=== PATIENT | female | born 1955 | race African-American/Black ===

== ENCOUNTER 2017-04-04 09:31 | Emergency (ER) | payer OTHER ==
[~2017-04-04] VITALS: Ht 162.6 cm; Wt 56.8 kg
[~2017-04-04 09:31] MED LIST: AMLO-511 PO; ASPI81TA33 PO; HYDR-2924 PO; NAPR-58 PO; VITAD1000 PO
[2017-04-04 11:28] LABS: INFLUENZA TYPE A NEGATIVE FOR TYPE A (NEGATIVE); INFLUENZA TYPE B NEGATIVE FOR TYPE B (NEGATIVE)
[2017-04-04] MEDS ORDERED: ASPIRIN 81 MG CHEWABLE TABLET PO ONE (12:45)
[2017-04-04 12:58] LABS: BASOPHILS # (AUTO) 0.03 K/uL (0.00-0.20); BASOPHILS % (AUTO) 0.5 % (0.0-2.0); EOSINOPHILS # (AUTO) 0.03 K/uL (0.00-0.70); EOSINOPHILS % (AUTO) 0.58 % (1.0-6.0); HEMATOCRIT 40.1 % (36-46); HEMOGLOBIN 13.3 g/dL (12.0-16.0); LYMPHOCYTES # (AUTO) 2.5 K/uL (1.0-4.8); LYMPHOCYTES % (AUTO) 48.6 % (22.0-44.0); MEAN CORPUSCULAR HEMOGLOBIN 32.9 pg (26.0-34.0); MEAN CORPUSCULAR HGB CONC 33.2 G/dL (31.0-37.0); MEAN CORPUSCULAR VOLUME 99 fL (80-100); MONOCYTES # (AUTO) 0.4 K/uL (0.1-1.0); MONOCYTES % (AUTO) 7.4 % (2.0-9.0); NEUTROPHILS # (AUTO) 2.2 K/uL (1.8-7.7); NEUTROPHILS % (AUTO) 42.9 % (40.0-70.0); PLATELET COUNT (AUTO) 136 K/uL (150-450); RED BLOOD CELL COUNT(AUTO) 4.04 MIL/uL (4.00-5.20)
[2017-04-04 13:03] LABS: PROTHROMBIN TIME 10.5 SEC (9.4-11.6)
[2017-04-04 13:07] LABS: ANION GAP 5 mmol/L (8-16); CALCIUM, TOTAL 8.7 mg/dL (8.8-10.5); CARBON DIOXIDE 31 mmol/L (22-29); CHLORIDE 102 mmol/L (98-107); CREATININE 0.86 mg/dL (0.60-1.30); GLOMERULAR FILTR. RATE CALC > 60 mL/min (>60); GLUCOSE,RANDOM 117 mg/dL (70-110); POTASSIUM 3.5 mmol/L (3.5-5.1); SODIUM SERUM 138 mmol/L (136-145); UREA NITROGEN, BLOOD 8 mg/dL (7-18)
[2017-04-04 13:26] LABS: B-TYPE NATRIURETIC PEPTIDE 103 pg/mL (0-100)
[2017-04-04 13:32] LABS: ALANINE AMINOTRANSFERASE 34 U/L (12-78); ALBUMIN 3.3 g/dL (3.4-5.0); ALKALINE PHOSPHATASE 75 U/L (46-116); ASPARTATE AMINOTRANSFERASE 55 U/L (15-37); BILIRUBIN,TOTAL 0.4 mg/dL (0.1-1.0); CREATINE KINASE MB 0.7 ng/mL (0-5); CREATINE KINASE, TOTAL 89 U/L (26-192); TOTAL PROTEIN, SERUM 7.5 g/dL (6.4-8.2)
[2017-04-04 13:36] LABS: APPEARANCE,URINE CLEAR (CLEAR); BILIRUBIN,URINE NEGATIVE (NEGATIVE); GLUCOSE, URINE (UA) NEGATIVE (NEGATIVE); KETONES,URINE NEGATIVE (NEGATIVE); LEUKOCYTE ESTERASE ,URINE NEGATIVE (NEGATIVE); NITRATE,URINE NEGATIVE (NEGATIVE); OCCULT BLOOD,URINE NEGATIVE (NEGATIVE); PROTEIN,URINE NEGATIVE (NEGATIVE); UROBILINOGEN,URINE 0.2 mg/dL (<=1.0)
[2017-04-04] MEDS ORDERED: NITROGLYCERIN 0.4 MG SUBLINGUAL TABLET #25 SL ONE (13:45)
[2017-04-04] MEDS ORDERED: MORPHINE SULFATE 2 MG/ML SYRINGE IVP ONE (14:00)
[2017-04-04] MEDS ORDERED: ONDANSETRON HCL 4 MG/2 ML VIAL IVP ONE (14:00)
[2017-04-04] MEDS ORDERED: MORPHINE SULFATE 4 MG/ML SYRINGE IVP ONE (14:00)
[2017-04-04] MEDS ORDERED: LORazepam 1 MG TABLET PO ONE (15:00)
[2017-04-04] MEDS ORDERED: HydrALAZINE HCL 25 MG TABLET PO ONE (15:15)
[2017-04-04] MEDS ORDERED: ALBUTEROL SULFATE HFA 90 MCG/PUFF 8 GM INHALER IH ONE (15:15)
[2017-04-04] MEDS ORDERED: AmLODIPine BESYLATE 5 MG TABLET PO ONE (15:15)
[2017-04-04 16:43] VITALS: BP 158/100
== END 2017-04-04 17:44 | disposition home or self-care (01) ==
LOC: EMS 09:32
DX: J45.901 Unspecified asthma with (acute) exacerbation (principal); J20.9 Acute bronchitis, unspecified; M54.5 Low back pain; I10 Essential (primary) hypertension; F17.210 Nicotine dependence, cigarettes, uncomplicated; K21.9 Gastro-esophageal reflux disease without esophagitis; I25.2 Old myocardial infarction; Z95.0 Presence of cardiac pacemaker; Z88.2 Allergy status to sulfonamides; Z88.0 Allergy status to penicillin; Z79.82 Long term (current) use of aspirin; Z86.73 Personal history of transient ischemic attack (TIA), and cerebral infarction without residual deficits
CPT/HCPCS: 36415; 71045; 80053; 81003; 82550; 82553; 83880; 84484; 85025; 85610; 85730; 87804; 93005; 94640; 96374; 96375; 99285; 99406; J2270; J2405; J3535

== ENCOUNTER 2017-12-17 19:39 | Emergency (ER) | payer OTHER ==
[~2017-12-17] VITALS: Ht 162.6 cm; Wt 59.0 kg
[~2017-12-17 19:39] MED LIST changes: -ASPI81TA33 PO; +ASPI81TA87 PO
[2017-12-17] MEDS ORDERED: IBUPROFEN 800 MG TABLET PO ONE (22:30)
[2017-12-17 22:54] VITALS: BP 149/95
== END 2017-12-17 22:56 | disposition home or self-care (01) ==
LOC: EMS 19:40
DX: S52.552A Other extraarticular fracture of lower end of left radius, initial encounter for closed fracture (principal); F41.9 Anxiety disorder, unspecified; J45.909 Unspecified asthma, uncomplicated; K21.9 Gastro-esophageal reflux disease without esophagitis; I10 Essential (primary) hypertension; I25.2 Old myocardial infarction; F17.210 Nicotine dependence, cigarettes, uncomplicated; Z95.0 Presence of cardiac pacemaker; Z88.2 Allergy status to sulfonamides; Z88.0 Allergy status to penicillin; Z79.82 Long term (current) use of aspirin; Z90.49 Acquired absence of other specified parts of digestive tract; W01.0XXA Fall on same level from slipping, tripping and stumbling without subsequent striking against object, initial encounter; Y93.01 Activity, walking, marching and hiking; Y92.89 Other specified places as the place of occurrence of the external cause; Y99.8 Other external cause status
CPT/HCPCS: 99284

== ENCOUNTER 2018-01-20 09:21 | Emergency (ER) | payer OTHER ==
[~2018-01-20] VITALS: Ht 162.6 cm; Wt 56.4 kg
[2018-01-20] MEDS ORDERED: KETOROLAC TROMETHAMINE 30 MG/ML VIAL IM ONE (12:45)
[2018-01-20 13:11] VITALS: BP 121/77
== END 2018-01-20 14:11 | disposition home or self-care (01) ==
LOC: EMS 09:23
DX: S52.502A Unspecified fracture of the lower end of left radius, initial encounter for closed fracture (principal); F41.9 Anxiety disorder, unspecified; J45.909 Unspecified asthma, uncomplicated; K21.9 Gastro-esophageal reflux disease without esophagitis; I10 Essential (primary) hypertension; I25.2 Old myocardial infarction; F17.210 Nicotine dependence, cigarettes, uncomplicated; Z95.818 Presence of other cardiac implants and grafts; Z86.73 Personal history of transient ischemic attack (TIA), and cerebral infarction without residual deficits; Z95.0 Presence of cardiac pacemaker; Z90.49 Acquired absence of other specified parts of digestive tract; Z98.890 Other specified postprocedural states; Z79.1 Long term (current) use of non-steroidal anti-inflammatories (NSAID); Z79.82 Long term (current) use of aspirin; Z79.899 Other long term (current) drug therapy; Z88.2 Allergy status to sulfonamides; Z88.0 Allergy status to penicillin; X58.XXXA Exposure to other specified factors, initial encounter; Y93.89 Activity, other specified; Y92.89 Other specified places as the place of occurrence of the external cause; Y99.8 Other external cause status
CPT/HCPCS: 29125; 73110; 96372; 99284; J1885

== ENCOUNTER 2018-05-21 13:40 | Emergency (ER) | payer OTHER ==
[~2018-05-21] VITALS: Ht 157.5 cm; Wt 51.8 kg
[2018-05-21] MEDS ORDERED: ACETAMINOPHEN 325 MG TABLET PO ONE (14:45)
[2018-05-21] MEDS ORDERED: GuaiFENesin/D-METHORPHAN [SUGAR-FREE] 200-20MG/10 ML SYRUP UDCUP PO ONE (14:45)
[2018-05-21 15:02] VITALS: BP 133/87
== END 2018-05-21 15:04 | disposition home or self-care (01) ==
LOC: EMS 13:41
DX: J06.9 Acute upper respiratory infection, unspecified (principal); M79.10 Myalgia, unspecified site; F41.9 Anxiety disorder, unspecified; J45.909 Unspecified asthma, uncomplicated; F32.9 Major depressive disorder, single episode, unspecified; K21.9 Gastro-esophageal reflux disease without esophagitis; I10 Essential (primary) hypertension; I25.2 Old myocardial infarction; F17.210 Nicotine dependence, cigarettes, uncomplicated; Z95.0 Presence of cardiac pacemaker; Z90.49 Acquired absence of other specified parts of digestive tract; Z88.2 Allergy status to sulfonamides; Z88.0 Allergy status to penicillin; Z79.82 Long term (current) use of aspirin

== ENCOUNTER 2019-06-29 07:31 | Emergency (ER) | payer OTHER ==
[~2019-06-29] VITALS: Ht 162.6 cm; Wt 54.5 kg
[~2019-06-29 07:31] MED LIST changes: -AMLO-511 PO; +AMLO5TAB9 PO; +CHOL100018 PO; +NAPR-1025 PO; -NAPR-58 PO; -VITAD1000 PO
[2019-06-29] MEDS ORDERED: LIDOCAINE 5% TRANSDERMAL PATCH TD ONE (08:00)
[2019-06-29] MEDS ORDERED: LORazepam 1 MG TABLET PO ONE (08:00)
[2019-06-29] MEDS ORDERED: ACETAMINOPHEN 325 MG TABLET PO ONE (08:00)
[2019-06-29] MEDS ORDERED: CYCLOBENZAPRINE HCL 10 MG TABLET PO ONE (09:00)
[2019-06-29] MEDS ORDERED: LIDOCAINE 1% 10 ML VIAL INJ ONE (10:00)
[2019-06-29 10:02] VITALS: BP 147/88
[2019-07-04] MEDS ORDERED: METO-416 PO (19:02)
[2019-07-04] MEDS ORDERED: GABA-531 PO (19:02)
[2019-07-04] MEDS ORDERED: CHOL100018 PO (19:05)
== END 2019-06-29 10:50 | disposition home or self-care (01) ==
LOC: EMS 07:33
DX: M54.2 Cervicalgia (principal); F41.9 Anxiety disorder, unspecified; J45.909 Unspecified asthma, uncomplicated; F32.9 Major depressive disorder, single episode, unspecified; K21.9 Gastro-esophageal reflux disease without esophagitis; I10 Essential (primary) hypertension; I25.2 Old myocardial infarction; F17.210 Nicotine dependence, cigarettes, uncomplicated; Z90.89 Acquired absence of other organs; Z95.0 Presence of cardiac pacemaker; Z88.1 Allergy status to other antibiotic agents; Z79.82 Long term (current) use of aspirin; Z88.0 Allergy status to penicillin
CPT/HCPCS: 20550; 99284; J3490

== ENCOUNTER 2019-07-03 14:56 | Emergency (ER) | payer OTHER ==
[~2019-07-03] VITALS: Ht 162.6 cm; Wt 45.5 kg
[~2019-07-03 14:56] MED LIST changes: -NAPR-1025 PO
[2019-07-03 15:45] VITALS: BP 123/84
[2019-07-03] MEDS ORDERED: ACETAMINOPHEN 325 MG TABLET PO ONE (16:15)
[2019-07-03] MEDS ORDERED: IBUPROFEN 400 MG TABLET PO ONE (16:15)
[2019-07-04] MEDS ORDERED: GABA-531 PO (19:02)
[2019-07-04] MEDS ORDERED: METO-416 PO (19:02)
[2019-07-04] MEDS ORDERED: CHOL100018 PO (19:05)
== END 2019-07-03 19:09 | disposition left against medical advice (07) ==
LOC: EMS 15:04
DX: M54.2 Cervicalgia (principal); Z53.21 Procedure and treatment not carried out due to patient leaving prior to being seen by health care provider

== ENCOUNTER 2020-04-03 16:05 | Emergency (ER) | payer OTHER ==
[~2020-04-03] VITALS: Ht 162.6 cm; Wt 56.4 kg
[~2020-04-03 16:05] MED LIST changes: +AMLO-257 PO; -AMLO5TAB9 PO; +GABA-531 PO; +METO-416 PO
[2020-04-03] MEDS ORDERED: PERTUSS(ACELL),DIPH,TET VAC/PF 0.5 ML VIAL IM ONE (18:15)
[2020-04-03] MEDS ORDERED: IBUPROFEN 600 MG TABLET PO ONE (18:15)
[2020-04-03] MEDS ORDERED: LIDOCAINE 1% 10 ML VIAL SQ ONE (18:15)
[2020-04-03] MEDS ORDERED: CIPROFLOXACIN HCL 250 MG TABLET PO ONE (18:45)
[2020-04-03 20:43] VITALS: BP 119/76
== END 2020-04-03 20:50 | disposition home or self-care (01) ==
LOC: EMS 16:05
DX: S01.511A Laceration without foreign body of lip, initial encounter (principal); F41.9 Anxiety disorder, unspecified; J45.909 Unspecified asthma, uncomplicated; F32.9 Major depressive disorder, single episode, unspecified; K21.9 Gastro-esophageal reflux disease without esophagitis; I10 Essential (primary) hypertension; I25.2 Old myocardial infarction; F17.210 Nicotine dependence, cigarettes, uncomplicated; Z88.0 Allergy status to penicillin; Z88.1 Allergy status to other antibiotic agents; Z95.0 Presence of cardiac pacemaker; W54.0XXA Bitten by dog, initial encounter; Y93.89 Activity, other specified; Y92.89 Other specified places as the place of occurrence of the external cause; Y99.8 Other external cause status
CPT/HCPCS: 40650; 90471; 90715; 99284; J3490

== ENCOUNTER 2020-10-08 03:30 | Inpatient (IN) | payer MEDICARE, OTHER ==
[~2020-10-08] VITALS: Ht 162.6 cm; Wt 60.3 kg
[~2020-10-08 03:30] MED LIST changes: +CHOL-35 PO; -CHOL100018 PO; -HYDR-2924 PO; +HYDR50TA36 PO
[2020-10-08] MEDS ORDERED: SODIUM CHLORIDE 0.9% 1,000 ML IV ONE ×2 (04:00→05:45)
[2020-10-08] MEDS ORDERED: 0.9% SODIUM CHLORIDE 10 ML SYRINGE IVP PRN ×2 (04:00→08:15)
[2020-10-08] MEDS ORDERED: MORPHINE SULFATE 2 MG/ML SYRINGE IVP ONE ×2 (04:00→10:45)
[2020-10-08 04:43] LABS: COVID AG,FIA SOURCE NASOPHARYNGEAL
[2020-10-08 04:48] LABS: BASOPHILS % (AUTO) 0.5 % (0.0-2.0); EOSINOPHILS % (AUTO) 0.2 % (1.0-6.0); HEMATOCRIT 33.6 % (36-46); HEMOGLOBIN 11.1 g/dL (12.0-16.0); LYMPHOCYTES # (AUTO) 1.3 K/uL (1.0-4.8); LYMPHOCYTES % (AUTO) 34.3 % (22.0-44.0); MEAN CORPUSCULAR HEMOGLOBIN 35.2 pg (26.0-34.0); MEAN CORPUSCULAR HGB CONC 33.1 G/dL (31.0-37.0); MEAN CORPUSCULAR VOLUME 106 fL (80-100); MONOCYTES # (AUTO) 0.4 K/uL (0.1-1.0); MONOCYTES % (AUTO) 10.4 % (2.0-9.0); NEUTROPHILS % (AUTO) 54.6 % (40.0-70.0); PLATELET COUNT (AUTO) 153 K/uL (150-450); RED BLOOD CELL COUNT(AUTO) 3.16 MIL/uL (4.00-5.20); RED CELL DISTRIBUTION WIDTH 16.9 % (11.5-14.5)
[2020-10-08 04:59] LABS: ANION GAP 12 mmol/L (8-16); CALCIUM, TOTAL 8.8 mg/dL (8.8-10.5); CARBON DIOXIDE 28 mmol/L (22-29); CHLORIDE 96 mmol/L (98-107); CREATININE 0.63 mg/dL (0.60-1.30); GLOMERULAR FILTR. RATE CALC > 60 mL/min (>60); GLUCOSE,RANDOM 85 mg/dL (70-110); POTASSIUM 3.4 mmol/L (3.5-5.1); SODIUM SERUM 136 mmol/L (136-145); UREA NITROGEN, BLOOD 3 mg/dL (7-18)
[2020-10-08 05:01] LABS: PROTHROMBIN TIME 10.5 SEC (9.4-11.6)
[2020-10-08 05:23] LABS: B-TYPE NATRIURETIC PEPTIDE 24 pg/mL (0-100)
[2020-10-08 05:24] LABS: ALANINE AMINOTRANSFERASE 219 U/L (12-78); ALKALINE PHOSPHATASE 153 U/L (46-116); ASPARTATE AMINOTRANSFERASE 574 U/L (15-37); BILIRUBIN,TOTAL 1.3 mg/dL (0.1-1.0); CREATINE KINASE, TOTAL ONLY 137 U/L (26-192); TOTAL PROTEIN, SERUM 7.1 g/dL (6.4-8.2)
[2020-10-08 05:35] LABS: LACTIC ACID 3.7 mmol/L (0.4-2.0)
[2020-10-08 05:57] LABS: D-DIMER 0.87 mg/L FEU (0.00-0.50)
[2020-10-08] MEDS ORDERED: MethylPREDNISolone SOD SUCC 125 MG/2 ML VIAL IVP ONE (06:15)
[2020-10-08] MEDS ORDERED: AZITHROMYCIN 500 MG/NS 250 ML IV ONE (06:15)
[2020-10-08] MEDS ORDERED: CefTRIAXone 1 GM/DEXTROSE 50 ML IV ONE (06:15)
[2020-10-08 06:18] LABS: APPEARANCE,URINE CLEAR (CLEAR); BILIRUBIN,URINE NEGATIVE (NEGATIVE); GLUCOSE, URINE (UA) NEGATIVE (NEGATIVE); KETONES,URINE TRACE mg/dL (NEGATIVE); LEUKOCYTE ESTERASE ,URINE NEGATIVE (NEGATIVE); NITRATE,URINE NEGATIVE (NEGATIVE); OCCULT BLOOD,URINE TRACE (NEGATIVE); PROTEIN,URINE NEGATIVE (NEGATIVE)
[2020-10-08 06:23] LABS: AMPHET/METH SCREEN,URINE NEGATIVE (NEGATIVE); BARBITURATE SCREEN, URINE NEGATIVE (NEGATIVE); BENZODIAZEPINES SCREEN,URINE POSITIVE (NEGATIVE); CANNABINOID SCREEN,URINE NEGATIVE (NEGATIVE); COCAINE SCREEN,URINE NEGATIVE (NEGATIVE); METHADONE SCREEN, URINE NEGATIVE (NEGATIVE); OPIATE SCREEN,URINE POSITIVE (NEGATIVE)
[2020-10-08 06:24] LABS: PHENCYCLIDINE SCREEN,URINE NEGATIVE (NEGATIVE)
[2020-10-08 06:28] LABS: ABG BASE EXCESS -2.5 mmol/L (-2.0-3.0); ABG CARBOXYHEMOGLOBIN 0.9 % (0.0-1.5); ABG HCO3 22.2 mmol/L (22.0-26.0); ABG METHEMOGLOBIN 0.2 % (0.0-1.5); ABG OXYGEN CONTENT 14.8 mL/dL (15.0-23.0); ABG OXYGEN SATURATION 98.3 % (95.0-98.0); ABG OXYHEMOGLOBIN 97.2 % (94.0-100.0); ABG PCO2 51 mmHg (35-45); ABG PH 7.293 (7.35-7.450); ABG TOTAL HEMOGLOBIN 10.6 G/dL (12.0-18.0); O2 DEVICE,BLOOD GAS CANNULA (ROOM AIR); PO2, ARTERIAL BG 148.8 mmHg (79.0-87.0); SITE, BLOOD GAS RT RADIAL; SOURCE, BLOOD GAS ARTERIAL; TEMPERATURE, FAHRENHEIT, BG 98.6 FAHREN (96.0-98.6)
[2020-10-08 06:48] LABS: RBC,URINE 0-2 /HPF (0-2); WBC,URINE 0-2 /HPF (0-5)
[2020-10-08 06:49] LABS: BACTERIA,URINE Few /HPF (None Seen); SQUAMOUS EPITHELIAL CELL,UR Rare /LPF (None Seen)
[2020-10-08] MEDS ORDERED: SODIUM CHLORIDE 0.9% 100 ML ONE (06:53)
[2020-10-08] MEDS ORDERED: IOHEXOL 350 MG/ML 100 ML VIAL ONE (06:53)
[2020-10-08] MEDS ORDERED: ONDANSETRON HCL 4 MG/2 ML VIAL IVP PRN ×2 (08:15→13:45)
[2020-10-08] MEDS ORDERED: ZOLPIDEM TARTRATE 5 MG TABLET PO PRN (13:45)
[2020-10-08] MEDS ORDERED: MAGNESIUM HYDROXIDE SUSPENSION 30 ML UDCUP PO PRN (13:45)
[2020-10-08] MEDS ORDERED: BISACODYL 10 MG RECTAL RECTAL SUPPOSITORY PR PRN (13:45)
[2020-10-08] MEDS ORDERED: ACETAMINOPHEN 325 MG TABLET PO PRN (13:45)
[2020-10-08] MEDS: NITROGLYCERIN 2% (1 GM=INCH) PACKET TP SCH ×2 (16:00→23:52)
[2020-10-08] MEDS: HEPARIN SODIUM,PORCINE 5,000 UNITS/ML VIAL SQ SCH ×2 (16:30→23:48)
[2020-10-08] MEDS: HYDROCODONE/ACETAMINOPHEN 5-325 MG TABLET PO PRN ×2 (16:32→23:48)
[2020-10-08 18:20] VITALS: BP 143/100
[2020-10-08 19:53] VITALS: BP 157/99
[2020-10-08] MEDS: HydrALAZINE HCL 50 MG TABLET PO SCH (20:41)
[2020-10-08] MEDS: DOCUSATE SODIUM 100 MG CAPSULE PO SCH (20:41)
[2020-10-08] MEDS: GABAPENTIN 300 MG CAPSULE PO SCH (20:41)
[2020-10-09 00:10] VITALS: BP 133/85
[2020-10-09 04:44] VITALS: BP 128/85
[2020-10-09 07:41] LABS: BASOPHILS % (AUTO) 0.3 % (0.0-2.0); EOSINOPHILS % (AUTO) 0 % (1.0-6.0); HEMATOCRIT 33.4 % (36-46); LYMPHOCYTES # (AUTO) 1.5 K/uL (1.0-4.8); LYMPHOCYTES % (AUTO) 43.8 % (22.0-44.0); MEAN CORPUSCULAR HEMOGLOBIN 35.7 pg (26.0-34.0); MEAN CORPUSCULAR HGB CONC 32.9 G/dL (31.0-37.0); MEAN CORPUSCULAR VOLUME 109 fL (80-100); MONOCYTES # (AUTO) 0.3 K/uL (0.1-1.0); MONOCYTES % (AUTO) 10.2 % (2.0-9.0); NEUTROPHILS # (AUTO) 1.6 K/uL (1.8-7.7); NEUTROPHILS % (AUTO) 45.7 % (40.0-70.0); PLATELET COUNT (AUTO) 127 K/uL (150-450); RED BLOOD CELL COUNT(AUTO) 3.08 MIL/uL (4.00-5.20)
[2020-10-09 07:50] VITALS: BP 126/88
[2020-10-09 08:00] LABS: ALANINE AMINOTRANSFERASE 160 U/L (12-78); ALBUMIN 2.3 g/dL (3.4-5.0); ALKALINE PHOSPHATASE 117 U/L (46-116); ANION GAP 2 mmol/L (8-16); ASPARTATE AMINOTRANSFERASE 304 U/L (15-37); BILIRUBIN,TOTAL 0.8 mg/dL (0.1-1.0); CARBON DIOXIDE 32 mmol/L (22-29); CHLORIDE 103 mmol/L (98-107); CHOL/HDL RATIO 2.4 (3.9-5.7); CHOLESTEROL 294 mg/dL (131-200); CREATININE 0.64 mg/dL (0.60-1.30); GLOMERULAR FILTR. RATE CALC > 60 mL/min (>60); GLUCOSE,RANDOM 80 mg/dL (70-110); HDL CHOLESTEROL 121 mg/dL (40-60); LDL CHOL (CALC.) 161 mg/dL (0-130); POTASSIUM 3.4 mmol/L (3.5-5.1); SODIUM SERUM 137 mmol/L (136-145); TOTAL PROTEIN, SERUM 5.7 g/dL (6.4-8.2); TRIGLYCERIDES 60 mg/dL (15-150); UREA NITROGEN, BLOOD 4 mg/dL (7-18)
[2020-10-09] MEDS ORDERED: ASPIRIN 81 MG DR TABLET PO SCH (09:00)
[2020-10-09] MEDS: DOCUSATE SODIUM 100 MG CAPSULE PO SCH ×3 (09:00→20:30)
[2020-10-09 09:28] LABS: BASOPHILS % (AUTO) 0.6 % (0.0-2.0); EOSINOPHILS % (AUTO) 0.1 % (1.0-6.0); HEMATOCRIT 36.1 % (36-46); HEMOGLOBIN 11.7 g/dL (12.0-16.0); LYMPHOCYTES # (AUTO) 1.7 K/uL (1.0-4.8); LYMPHOCYTES % (AUTO) 41.2 % (22.0-44.0); MEAN CORPUSCULAR HEMOGLOBIN 35.2 pg (26.0-34.0); MEAN CORPUSCULAR HGB CONC 32.5 G/dL (31.0-37.0); MEAN CORPUSCULAR VOLUME 108 fL (80-100); MONOCYTES # (AUTO) 0.3 K/uL (0.1-1.0); MONOCYTES % (AUTO) 6.3 % (2.0-9.0); NEUTROPHILS # (AUTO) 2.1 K/uL (1.8-7.7); NEUTROPHILS % (AUTO) 51.8 % (40.0-70.0); PLATELET COUNT (AUTO) 133 K/uL (150-450); RED BLOOD CELL COUNT(AUTO) 3.33 MIL/uL (4.00-5.20); RED CELL DISTRIBUTION WIDTH 17.8 % (11.5-14.5)
[2020-10-09] MEDS: NITROGLYCERIN 2% (1 GM=INCH) PACKET TP SCH ×2 (09:28→15:37)
[2020-10-09] MEDS: PANTOPRAZOLE SODIUM 40 MG DR TABLET PO SCH (09:28)
[2020-10-09] MEDS: HydrALAZINE HCL 50 MG TABLET PO SCH ×2 (09:28→20:26)
[2020-10-09] MEDS: GABAPENTIN 300 MG CAPSULE PO SCH ×3 (09:29→20:26)
[2020-10-09] MEDS: HEPARIN SODIUM,PORCINE 5,000 UNITS/ML VIAL SQ SCH ×3 (09:30→23:44)
[2020-10-09] MEDS: HYDROCODONE/ACETAMINOPHEN 5-325 MG TABLET PO PRN ×2 (09:30→20:26)
[2020-10-09] MEDS: ASPIRIN 81 MG CHEWABLE TABLET PO SCH (09:31)
[2020-10-09] MEDS: METOPROLOL SUCCINATE 50 MG ER TABLET PO SCH (09:31)
[2020-10-09] MEDS: CHOLECALCIFEROL (VIT D3) 1,000 UNITS [25 MCG] TABLET PO SCH (09:32)
[2020-10-09] MEDS: AmLODIPine BESYLATE 5 MG TABLET PO SCH (09:33)
[2020-10-09 09:49] LABS: ANION GAP 6 mmol/L (8-16); CALCIUM, TOTAL 8.6 mg/dL (8.8-10.5); CARBON DIOXIDE 31 mmol/L (22-29); CHLORIDE 101 mmol/L (98-107); CREATININE 0.56 mg/dL (0.60-1.30); GLOMERULAR FILTR. RATE CALC > 60 mL/min (>60); GLUCOSE,RANDOM 95 mg/dL (70-110); POTASSIUM 3.2 mmol/L (3.5-5.1); SODIUM SERUM 138 mmol/L (136-145); UREA NITROGEN, BLOOD 5 mg/dL (7-18)
[2020-10-09 11:10] VITALS: BP 123/79
[2020-10-09] MEDS: MORPHINE SULFATE 2 MG/ML SYRINGE IVP PRN (15:34)
[2020-10-09 16:10] VITALS: BP 104/68
[2020-10-09] MEDS ORDERED: POTASSIUM CHL 10 MEQ/WATER 50 ML IV PRN (18:15)
[2020-10-09] MEDS ORDERED: POTASSIUM CHLORIDE 20 MEQ ER TABLET PO PRN (18:15)
[2020-10-09 19:31] VITALS: BP 108/76
[2020-10-10 00:07] VITALS: BP 131/91
[2020-10-10] MEDS: NITROGLYCERIN 2% (1 GM=INCH) PACKET TP SCH ×3 (00:23→16:00)
[2020-10-10] MEDS: MORPHINE SULFATE 2 MG/ML SYRINGE IVP PRN ×2 (00:23→07:42)
[2020-10-10 04:44] VITALS: BP 113/70
[2020-10-10 06:19] LABS: BASOPHILS % (AUTO) 0.5 % (0.0-2.0); EOSINOPHILS % (AUTO) 0.5 % (1.0-6.0); HEMATOCRIT 31.3 % (36-46); HEMOGLOBIN 10.2 g/dL (12.0-16.0); LYMPHOCYTES # (AUTO) 1.7 K/uL (1.0-4.8); LYMPHOCYTES % (AUTO) 46.8 % (22.0-44.0); MEAN CORPUSCULAR HEMOGLOBIN 35.6 pg (26.0-34.0); MEAN CORPUSCULAR HGB CONC 32.6 G/dL (31.0-37.0); MEAN CORPUSCULAR VOLUME 109 fL (80-100); MONOCYTES # (AUTO) 0.2 K/uL (0.1-1.0); MONOCYTES % (AUTO) 6.5 % (2.0-9.0); NEUTROPHILS # (AUTO) 1.7 K/uL (1.8-7.7); NEUTROPHILS % (AUTO) 45.7 % (40.0-70.0); PLATELET COUNT (AUTO) 109 K/uL (150-450); RED BLOOD CELL COUNT(AUTO) 2.87 MIL/uL (4.00-5.20)
[2020-10-10 06:49] LABS: ANION GAP 3 mmol/L (8-16); CALCIUM, TOTAL 8.5 mg/dL (8.8-10.5); CARBON DIOXIDE 31 mmol/L (22-29); CHLORIDE 107 mmol/L (98-107); CREATININE 0.73 mg/dL (0.60-1.30); GLOMERULAR FILTR. RATE CALC > 60 mL/min (>60); GLUCOSE,RANDOM 84 mg/dL (70-110); POTASSIUM 3.7 mmol/L (3.5-5.1); SODIUM SERUM 141 mmol/L (136-145); UREA NITROGEN, BLOOD 8 mg/dL (7-18)
[2020-10-10] MEDS: HEPARIN SODIUM,PORCINE 5,000 UNITS/ML VIAL SQ SCH ×2 (07:39→16:00)
[2020-10-10] MEDS: PANTOPRAZOLE SODIUM 40 MG DR TABLET PO SCH (07:39)
[2020-10-10] MEDS: CHOLECALCIFEROL (VIT D3) 1,000 UNITS [25 MCG] TABLET PO SCH (07:40)
[2020-10-10] MEDS: GABAPENTIN 300 MG CAPSULE PO SCH ×2 (07:40→16:20)
[2020-10-10] MEDS: ASPIRIN 81 MG CHEWABLE TABLET PO SCH (07:41)
[2020-10-10] MEDS: METOPROLOL SUCCINATE 50 MG ER TABLET PO SCH (07:43)
[2020-10-10] MEDS: HydrALAZINE HCL 50 MG TABLET PO SCH (07:43)
[2020-10-10] MEDS: AmLODIPine BESYLATE 5 MG TABLET PO SCH (07:43)
[2020-10-10 07:48] VITALS: BP 139/104
[2020-10-10 10:35] LABS: EOSINOPHILS % (AUTO) 0.6 % (1.0-6.0); HEMATOCRIT 33.4 % (36-46); HEMOGLOBIN 10.8 g/dL (12.0-16.0); LYMPHOCYTES # (AUTO) 1.7 K/uL (1.0-4.8); MEAN CORPUSCULAR HGB CONC 32.3 G/dL (31.0-37.0); NEUTROPHILS # (AUTO) 1.7 K/uL (1.8-7.7); PLATELET COUNT (AUTO) 120 K/uL (150-450); RED BLOOD CELL COUNT(AUTO) 3.05 MIL/uL (4.00-5.20)
[2020-10-10 10:38] LABS: BASOPHILS % (AUTO) 0.4 % (0.0-2.0); LYMPHOCYTES % (AUTO) 44.9 % (22.0-44.0); MEAN CORPUSCULAR HEMOGLOBIN 35.4 pg (26.0-34.0); MEAN CORPUSCULAR VOLUME 110 fL (80-100); MONOCYTES # (AUTO) 0.3 K/uL (0.1-1.0); MONOCYTES % (AUTO) 7.5 % (2.0-9.0); NEUTROPHILS % (AUTO) 46.6 % (40.0-70.0); RED CELL DISTRIBUTION WIDTH 18.1 % (11.5-14.5)
[2020-10-10 10:51] LABS: ANION GAP 5 mmol/L (8-16); CALCIUM, TOTAL 8.6 mg/dL (8.8-10.5); CARBON DIOXIDE 30 mmol/L (22-29); CHLORIDE 106 mmol/L (98-107); CREATININE 0.66 mg/dL (0.60-1.30); GLOMERULAR FILTR. RATE CALC > 60 mL/min (>60); GLUCOSE,RANDOM 121 mg/dL (70-110); POTASSIUM 3.6 mmol/L (3.5-5.1); SODIUM SERUM 141 mmol/L (136-145); UREA NITROGEN, BLOOD 7 mg/dL (7-18)
[2020-10-10 11:32] VITALS: BP 128/93
[2020-10-10] MEDS: HYDROCODONE/ACETAMINOPHEN 5-325 MG TABLET PO PRN (13:46)
[2020-10-10 15:11] VITALS: BP 130/92
== END 2020-10-10 17:00 | disposition home or self-care (01) | DRG 205 ==
LOC: EMS 03:31 → 5N 16:20
PROVIDERS: ADMIT Hospitalist; ATTEND Hospitalist
DX: M94.0 Chondrocostal junction syndrome [Tietze] (principal); E43 Unspecified severe protein-calorie malnutrition; E87.2 Acidosis; I42.8 Other cardiomyopathies; I50.22 Chronic systolic (congestive) heart failure; B19.20 Unspecified viral hepatitis C without hepatic coma; D64.9 Anemia, unspecified; E78.5 Hyperlipidemia, unspecified; F10.10 Alcohol abuse, uncomplicated; F17.210 Nicotine dependence, cigarettes, uncomplicated; F32.9 Major depressive disorder, single episode, unspecified; I11.0 Hypertensive heart disease with heart failure; F41.9 Anxiety disorder, unspecified; M25.511 Pain in right shoulder; K52.9 Noninfective gastroenteritis and colitis, unspecified; R35.0 Frequency of micturition; I25.10 Atherosclerotic heart disease of native coronary artery without angina pectoris; J45.909 Unspecified asthma, uncomplicated; K21.9 Gastro-esophageal reflux disease without esophagitis; Z20.822 Contact with and (suspected) exposure to COVID-19; Z78.9 Other specified health status; Z86.718 Personal history of other venous thrombosis and embolism; Z86.73 Personal history of transient ischemic attack (TIA), and cerebral infarction without residual deficits; Z90.49 Acquired absence of other specified parts of digestive tract; Z95.810 Presence of automatic (implantable) cardiac defibrillator; I25.2 Old myocardial infarction; Z68.22 Body mass index [BMI] 22.0-22.9, adult; Z88.0 Allergy status to penicillin; Z88.2 Allergy status to sulfonamides; Z79.899 Other long term (current) drug therapy; Z79.82 Long term (current) use of aspirin
CPT/HCPCS: 36600; 71045; 71275; 74176; 76705; 80048; 80053; 80061; 81001; 82550; 82805; 83605; 83880; 84132; 84145; 84484; 85025; 85379; 85610; 85730; 87040; 93005; 93306; 93971; 99285; A9575; G0480; J0456; J0696; J1644; J2270; J2930; J7030; J7050; 36415-L1; 36415-TC; U0003

== ENCOUNTER 2021-01-20 17:52 | Emergency (ER) | payer MEDICARE, OTHER ==
[~2021-01-20] VITALS: Ht 162.6 cm; Wt 60.0 kg
[2021-01-20] MEDS ORDERED: DiphenhydrAMINE HCL 50 MG CAPSULE PO ONE (18:45)
[2021-01-20] MEDS ORDERED: PredniSONE 20 MG TABLET PO ONE (18:45)
[2021-01-20 19:45] VITALS: BP 152/87
== END 2021-01-20 19:53 | disposition home or self-care (01) ==
LOC: EMS 18:11
DX: R21 Rash and other nonspecific skin eruption (principal)
CPT/HCPCS: 99284; J7512

== ENCOUNTER → 2021-01-25 | Outpatient (CLI) | payer MEDICARE, OTHER | END | disposition home or self-care (01) | LOC: RADPV 13:54 | PROVIDERS: ATTEND Legal Medicine | DX: M47.816 Spondylosis without myelopathy or radiculopathy, lumbar region (principal); M48.061 Spinal stenosis, lumbar region without neurogenic claudication; M25.78 Osteophyte, vertebrae; I70.8 Atherosclerosis of other arteries; M19.011 Primary osteoarthritis, right shoulder; I70.0 Atherosclerosis of aorta; Z95.810 Presence of automatic (implantable) cardiac defibrillator | CPT/HCPCS: 71046; 72100 ==

== ENCOUNTER 2021-05-22 13:29 | Emergency (ER) | payer MEDICARE, OTHER ==
[~2021-05-22] VITALS: Ht 162.6 cm; Wt 45.5 kg
[2021-05-22 14:39] LABS: ANION GAP 19 mmol/L (8-16); CALCIUM, TOTAL 8.5 mg/dL (8.8-10.5); CARBON DIOXIDE 20 mmol/L (22-29); CHLORIDE 97 mmol/L (98-107); CREATININE 0.76 mg/dL (0.60-1.30); GLOMERULAR FILTR. RATE CALC > 60 mL/min (>60); GLUCOSE,RANDOM 102 mg/dL (70-110); SODIUM SERUM 136 mmol/L (136-145); UREA NITROGEN, BLOOD 8 mg/dL (7-18)
[2021-05-22 14:40] LABS: ALBUMIN 2.9 g/dL (3.4-5.0); ALKALINE PHOSPHATASE 224 U/L (46-116); BILIRUBIN,TOTAL 1.5 mg/dL (0.1-1.0); TOTAL PROTEIN, SERUM 7.8 g/dL (6.4-8.2)
[2021-05-22 15:04] LABS: ALANINE AMINOTRANSFERASE 92 U/L (12-78)
[2021-05-22 15:13] LABS: ASPARTATE AMINOTRANSFERASE 187 U/L (15-37)
[2021-05-22 15:24] LABS: HEMATOCRIT 33.5 % (36-46); HEMOGLOBIN 10.9 g/dL (12.0-16.0); MEAN CORPUSCULAR HEMOGLOBIN 34.1 pg (26.0-34.0); MEAN CORPUSCULAR HGB CONC 32.5 G/dL (31.0-37.0); MEAN CORPUSCULAR VOLUME 105 fL (80-100); PLATELET COUNT (AUTO) 92 K/uL (150-450); RED BLOOD CELL COUNT(AUTO) 3.18 MIL/uL (4.00-5.20)
[2021-05-22 15:28] LABS: BAND NEUTROPHILS % (MANUAL) 1 % (0-5); LYMPHOCYTES % (MANUAL) 56 % (22-44); MONOCYTES % (MANUAL) 6 % (2-9); REACTIVE LYMPHOCYTES 2 % (0-0); SEGMENTED NEUTROPHILS % 35 % (40-70)
[2021-05-22] MEDS ORDERED: KETOROLAC TROMETHAMINE 30 MG/ML VIAL IM ONE (18:30)
[2021-05-22] MEDS ORDERED: ACETAMINOPHEN 500 MG TABLET PO ONE (18:45)
[2021-05-22] MEDS ORDERED: SODIUM CHLORIDE 0.9% 500 ML IV ONE (19:00)
[2021-05-22] MEDS ORDERED: METOPROLOL SUCCINATE 50 MG ER TABLET PO ONE (19:45)
[2021-05-22 20:43] VITALS: BP 128/72
[2021-05-22] MEDS ORDERED: METO-558 PO (20:45)
[2021-05-22] MEDS ORDERED: AMLO-257 PO (20:45)
[2021-05-22] MEDS ORDERED: BENZ-70 PO (20:53)
== END 2021-05-22 21:09 | disposition home or self-care (01) ==
LOC: EMS 13:33
DX: R06.02 Shortness of breath (principal); I11.0 Hypertensive heart disease with heart failure; I50.9 Heart failure, unspecified; J44.9 Chronic obstructive pulmonary disease, unspecified; F17.210 Nicotine dependence, cigarettes, uncomplicated; Z88.0 Allergy status to penicillin; Z88.2 Allergy status to sulfonamides; Z79.899 Other long term (current) drug therapy; Z79.82 Long term (current) use of aspirin
CPT/HCPCS: 71045; 80053; 83880; 84484; 85025; 85379; 93005; 96360; 96361; 99285; 36415-L1; 36415-TC

== ENCOUNTER 2021-06-25 23:56 | Emergency (ER) | payer MEDICARE, OTHER ==
[~2021-06-25] VITALS: Ht 154.9 cm; Wt 54.5 kg
[~2021-06-25 23:56] MED LIST changes: +BENZ-70 PO; -CHOL-35 PO; +CHOL25TA4 PO; +METO-558 PO
[2021-06-26 00:27] LABS: BASOPHILS % (AUTO) 1.1 % (0.0-2.0); EOSINOPHILS % (AUTO) 1.8 % (1.0-6.0); HEMOGLOBIN 12.4 g/dL (12.0-16.0); LYMPHOCYTES # (AUTO) 1.7 K/uL (1.0-4.8); LYMPHOCYTES % (AUTO) 39.4 % (22.0-44.0); MEAN CORPUSCULAR HEMOGLOBIN 34.5 pg (26.0-34.0); MEAN CORPUSCULAR HGB CONC 33.6 G/dL (31.0-37.0); MEAN CORPUSCULAR VOLUME 103 fL (80-100); MONOCYTES # (AUTO) 0.5 K/uL (0.1-1.0); MONOCYTES % (AUTO) 11.2 % (2.0-9.0); NEUTROPHILS # (AUTO) 2.1 K/uL (1.8-7.7); NEUTROPHILS % (AUTO) 46.5 % (40.0-70.0); PLATELET COUNT (AUTO) 177 K/uL (150-450); RED CELL DISTRIBUTION WIDTH 15.8 % (11.5-14.5)
[2021-06-26] MEDS ORDERED: LORazepam 1 MG TABLET PO ONE (01:00)
[2021-06-26 01:11] LABS: ANION GAP 13 mmol/L (8-16); CARBON DIOXIDE 26 mmol/L (22-29); CHLORIDE 105 mmol/L (98-107); CREATININE 0.73 mg/dL (0.60-1.30); GLOMERULAR FILTR. RATE CALC > 60 mL/min (>60); GLUCOSE,RANDOM 91 mg/dL (70-110); POTASSIUM 3.8 mmol/L (3.5-5.1); SODIUM SERUM 144 mmol/L (136-145); UREA NITROGEN, BLOOD 9 mg/dL (7-18)
[2021-06-26 01:16] LABS: ALANINE AMINOTRANSFERASE 22 U/L (12-78); ALBUMIN 3.4 g/dL (3.4-5.0); ALKALINE PHOSPHATASE 76 U/L (46-116); ASPARTATE AMINOTRANSFERASE 32 U/L (15-37); BILIRUBIN,TOTAL 0.2 mg/dL (0.1-1.0)
[2021-06-26 01:49] VITALS: BP 155/92
[2021-06-26] MEDS ORDERED: BENZ-70 PO (03:28)
== END 2021-06-26 03:10 | disposition home or self-care (01) ==
LOC: EMS 23:59
DX: R06.02 Shortness of breath (principal); I11.0 Hypertensive heart disease with heart failure; I50.9 Heart failure, unspecified; I25.10 Atherosclerotic heart disease of native coronary artery without angina pectoris; J44.9 Chronic obstructive pulmonary disease, unspecified; F17.210 Nicotine dependence, cigarettes, uncomplicated; F19.21 Other psychoactive substance dependence, in remission; Z98.890 Other specified postprocedural states; Z88.0 Allergy status to penicillin; Z88.2 Allergy status to sulfonamides
CPT/HCPCS: 71046; 80053; 83880; 84484; 85025; 93005; 99285; 36415-L1; 36415-TC

== ENCOUNTER 2022-01-19 09:30 | Emergency (ER) | payer MEDICARE, OTHER ==
[~2022-01-19] VITALS: Ht 165.1 cm; Wt 50.9 kg
[2022-01-19 10:06] LABS: COVID AG,FIA SOURCE NASOPHARYNGEAL
[2022-01-19 10:08] LABS: BASOPHILS % (AUTO) 0.4 % (0.0-2.0); EOSINOPHILS % (AUTO) 0.1 % (1.0-6.0); HEMATOCRIT 37.3 % (36-46); HEMOGLOBIN 12.7 g/dL (12.0-16.0); LYMPHOCYTES # (AUTO) 2.6 K/uL (1.0-4.8); LYMPHOCYTES % (AUTO) 29.3 % (22.0-44.0); MEAN CORPUSCULAR VOLUME 100 fL (80-100); MONOCYTES # (AUTO) 0.7 K/uL (0.1-1.0); MONOCYTES % (AUTO) 7.5 % (2.0-9.0); NEUTROPHILS # (AUTO) 5.5 K/uL (1.8-7.7); NEUTROPHILS % (AUTO) 62.7 % (40.0-70.0); PLATELET COUNT (AUTO) 120 K/uL (150-450); RED BLOOD CELL COUNT(AUTO) 3.73 MIL/uL (4.00-5.20); RED CELL DISTRIBUTION WIDTH 13.5 % (11.5-14.5)
[2022-01-19 10:18] LABS: ANION GAP 2 mmol/L (8-16); CALCIUM, TOTAL 9.4 mg/dL (8.8-10.5); CARBON DIOXIDE 33 mmol/L (22-29); CHLORIDE 100 mmol/L (98-107); CREATININE 0.79 mg/dL (0.60-1.30); GLUCOSE,RANDOM 88 mg/dL (70-110); POTASSIUM 3.7 mmol/L (3.5-5.1); SODIUM SERUM 135 mmol/L (136-145); UREA NITROGEN, BLOOD 13 mg/dL (7-18)
[2022-01-19 10:20] LABS: GLOMERULAR FILTR. RATE CALC > 60 mL/min (>60)
[2022-01-19 10:22] LABS: B-TYPE NATRIURETIC PEPTIDE 35 pg/mL (0-100)
[2022-01-19 10:24] LABS: ALANINE AMINOTRANSFERASE 31 U/L (12-78); ALBUMIN 3.4 g/dL (3.4-5.0); ALKALINE PHOSPHATASE 57 U/L (46-116); ASPARTATE AMINOTRANSFERASE 38 U/L (15-37); BILIRUBIN,TOTAL 0.6 mg/dL (0.1-1.0); CREATINE KINASE, TOTAL ONLY 56 U/L (26-192); TOTAL PROTEIN, SERUM 7.3 g/dL (6.4-8.2)
[2022-01-19 10:31] LABS: INFLUENZA TYPE A NEGATIVE FOR TYPE A (NEGATIVE); INFLUENZA TYPE B NEGATIVE FOR TYPE B (NEGATIVE)
[2022-01-19] MEDS ORDERED: IPRATROPIUM BROMIDE 0.5 MG/2.5 ML NEB SOLUTION NEB ONE (10:45)
[2022-01-19] MEDS ORDERED: ALBUTEROL SULFATE 2.5 MG/0.5 ML NEB SOLUTION NEB ONE (10:45)
[2022-01-19] MEDS ORDERED: ACETAMINOPHEN 325 MG TABLET PO ONE (10:45)
[2022-01-19 11:15] VITALS: BP 136/87
== END 2022-01-19 12:30 | disposition home or self-care (01) ==
LOC: EMS 09:34
DX: R07.9 Chest pain, unspecified (principal); I11.0 Hypertensive heart disease with heart failure; J44.9 Chronic obstructive pulmonary disease, unspecified; F17.210 Nicotine dependence, cigarettes, uncomplicated; Z98.890 Other specified postprocedural states; Z20.822 Contact with and (suspected) exposure to COVID-19; Z88.0 Allergy status to penicillin; Z82.2 Family history of deafness and hearing loss
CPT/HCPCS: 71045; 80053; 82550; 83880; 84484; 85025; 87804; 93005; 94640; 99285; 36415-L1; 36415-TC; J7613

== ENCOUNTER 2022-02-11 15:57 | Emergency (ER) | payer MEDICARE, OTHER ==
[~2022-02-11] VITALS: Ht 162.6 cm; Wt 53.2 kg
[~2022-02-11 15:57] MED LIST changes: -BENZ-70 PO
[2022-02-11 16:03] VITALS: BP 140/78
[2022-02-11 16:53] LABS: BASOPHILS % (AUTO) 0.6 % (0.0-2.0); EOSINOPHILS % (AUTO) 0.8 % (1.0-6.0); HEMATOCRIT 36.3 % (36-46); HEMOGLOBIN 11.6 g/dL (12.0-16.0); LYMPHOCYTES % (AUTO) 34.5 % (22.0-44.0); MEAN CORPUSCULAR HEMOGLOBIN 33.2 pg (26.0-34.0); MEAN CORPUSCULAR VOLUME 104 fL (80-100); MONOCYTES # (AUTO) 0.7 K/uL (0.1-1.0); MONOCYTES % (AUTO) 11.9 % (2.0-9.0); NEUTROPHILS # (AUTO) 3.1 K/uL (1.8-7.7); NEUTROPHILS % (AUTO) 52.2 % (40.0-70.0); PLATELET COUNT (AUTO) 130 K/uL (150-450); RED BLOOD CELL COUNT(AUTO) 3.49 MIL/uL (4.00-5.20)
[2022-02-11 17:03] LABS: ANION GAP 4 mmol/L (8-16); CALCIUM, TOTAL 9.2 mg/dL (8.8-10.5); CARBON DIOXIDE 29 mmol/L (22-29); CHLORIDE 106 mmol/L (98-107); GLUCOSE,RANDOM 129 mg/dL (70-110); POTASSIUM 3.7 mmol/L (3.5-5.1); SODIUM SERUM 139 mmol/L (136-145); UREA NITROGEN, BLOOD 14 mg/dL (7-18)
[2022-02-11 17:04] LABS: GLOMERULAR FILTR. RATE CALC > 60 mL/min (>60)
[2022-02-11 17:09] LABS: ALANINE AMINOTRANSFERASE 31 U/L (12-78); ALBUMIN 2.7 g/dL (3.4-5.0); ALKALINE PHOSPHATASE 73 U/L (46-116); ASPARTATE AMINOTRANSFERASE 24 U/L (15-37); BILIRUBIN,TOTAL 0.2 mg/dL (0.1-1.0); TOTAL PROTEIN, SERUM 6.5 g/dL (6.4-8.2)
[2022-02-11 17:10] LABS: B-TYPE NATRIURETIC PEPTIDE 74 pg/mL (0-100)
[2022-02-11 17:11] LABS: PROTHROMBIN TIME 11.1 SEC (9.4-11.6)
[2022-02-11] MEDS ORDERED: PRED-554 PO (20:44)
[2022-02-11] MEDS ORDERED: ALBUTEROL SULFATE HFA 90 MCG/PUFF 8 GM INHALER IH ONE (20:45)
[2022-02-11] MEDS ORDERED: IBUPROFEN 600 MG TABLET PO ONE (20:45)
[2022-02-11] MEDS ORDERED: PredniSONE 20 MG TABLET PO ONE (20:45)
[2022-02-11] MEDS ORDERED: BENZONATATE 100 MG CAPSULE PO ONE (21:15)
[2022-02-11 21:53] LABS: COVID AG,FIA SOURCE NASOPHARYNGEAL
[2022-02-11 22:23] LABS: INFLUENZA TYPE A NEGATIVE FOR TYPE A (NEGATIVE); INFLUENZA TYPE B NEGATIVE FOR TYPE B (NEGATIVE)
== END 2022-02-11 22:35 | disposition home or self-care (01) ==
LOC: EMS 16:00
DX: B34.9 Viral infection, unspecified (principal); Z20.822 Contact with and (suspected) exposure to COVID-19; I11.0 Hypertensive heart disease with heart failure; I25.10 Atherosclerotic heart disease of native coronary artery without angina pectoris; I50.9 Heart failure, unspecified; J44.9 Chronic obstructive pulmonary disease, unspecified; Z88.0 Allergy status to penicillin
CPT/HCPCS: 99285; 71045; 87426; 80053; 83880; 84484; 85025; 85610; 85730; 87804; 36415; 94640; 93005; J7512; J3535

== ENCOUNTER 2022-07-13 00:04 | Emergency (ER) | payer MEDICARE, OTHER ==
[~2022-07-13] VITALS: Ht 152.4 cm; Wt 56.4 kg
[~2022-07-13 00:04] MED LIST changes: -METO-416 PO; +PRED-554 PO
[2022-07-13] MEDS ORDERED: ALBUTEROL SULFATE 2.5 MG/0.5 ML NEB SOLUTION NEB ONE (00:30)
[2022-07-13] MEDS ORDERED: PredniSONE 20 MG TABLET PO ONE (00:30)
[2022-07-13] MEDS ORDERED: IPRATROPIUM BROMIDE 0.5 MG/2.5 ML NEB SOLUTION NEB ONE (00:30)
[2022-07-13] MEDS ORDERED: LORazepam 1 MG TABLET PO ONE (00:30)
[2022-07-13] MEDS ORDERED: ALBUTEROL SULFATE HFA 90 MCG/PUFF 8 GM INHALER IH ONE (04:15)
[2022-07-13] MEDS ORDERED: PRED-554 PO (04:15)
[2022-07-13 05:26] VITALS: BP 144/87
== END 2022-07-13 05:37 | disposition home or self-care (01) ==
LOC: EMS 00:05
DX: J45.909 Unspecified asthma, uncomplicated (principal); F41.9 Anxiety disorder, unspecified; J44.9 Chronic obstructive pulmonary disease, unspecified; I25.10 Atherosclerotic heart disease of native coronary artery without angina pectoris; I11.0 Hypertensive heart disease with heart failure; I50.9 Heart failure, unspecified; F17.210 Nicotine dependence, cigarettes, uncomplicated; Z88.0 Allergy status to penicillin; Z88.2 Allergy status to sulfonamides
CPT/HCPCS: 99285; 94640; J7512; J3535

== ENCOUNTER 2022-09-21 16:40 | Emergency (ER) | payer MEDICARE, OTHER ==
[~2022-09-21] VITALS: Ht 162.6 cm; Wt 57.7 kg
[2022-09-21 17:28] LABS: BASOPHILS % (AUTO) 0.3 % (0.0-2.0); EOSINOPHILS % (AUTO) 0.5 % (1.0-6.0); HEMATOCRIT 37.2 % (36-46); HEMOGLOBIN 12.4 g/dL (12.0-16.0); LYMPHOCYTES # (AUTO) 2.4 K/uL (1.0-4.8); LYMPHOCYTES % (AUTO) 27.4 % (22.0-44.0); MEAN CORPUSCULAR HEMOGLOBIN 33.4 pg (26.0-34.0); MEAN CORPUSCULAR HGB CONC 33.4 G/dL (31.0-37.0); MEAN CORPUSCULAR VOLUME 100 fL (80-100); MONOCYTES # (AUTO) 0.7 K/uL (0.1-1.0); MONOCYTES % (AUTO) 7.3 % (2.0-9.0); NEUTROPHILS # (AUTO) 5.7 K/uL (1.8-7.7); NEUTROPHILS % (AUTO) 64.5 % (40.0-70.0); PLATELET COUNT (AUTO) 102 K/uL (150-450); RED BLOOD CELL COUNT(AUTO) 3.72 MIL/uL (4.00-5.20); RED CELL DISTRIBUTION WIDTH 14.5 % (11.5-14.5)
[2022-09-21 17:32] LABS: APPEARANCE,URINE CLEAR (CLEAR); BILIRUBIN,URINE NEGATIVE (NEGATIVE); GLUCOSE, URINE (UA) NEGATIVE (NEGATIVE); KETONES,URINE NEGATIVE (NEGATIVE); LEUKOCYTE ESTERASE ,URINE NEGATIVE (NEGATIVE); NITRATE,URINE NEGATIVE (NEGATIVE); OCCULT BLOOD,URINE NEGATIVE (NEGATIVE); PROTEIN,URINE NEGATIVE (NEGATIVE); SPECIFIC GRAVITIY, URINE 1.022 (1.003-1.030); UROBILINOGEN,URINE <=1.0 mg/dL (<=1.0)
[2022-09-21 17:39] LABS: ANION GAP 11 mmol/L (8-16); CALCIUM, TOTAL 8.7 mg/dL (8.8-10.5); CARBON DIOXIDE 29 mmol/L (22-29); CHLORIDE 100 mmol/L (98-107); CREATININE 0.87 mg/dL (0.60-1.30); GLOMERULAR FILTR. RATE CALC > 60 mL/min (>60); GLUCOSE,RANDOM 112 mg/dL (70-110); POTASSIUM 3.6 mmol/L (3.5-5.1); PROTHROMBIN TIME 10.4 SEC (9.4-11.6); SODIUM SERUM 140 mmol/L (136-145)
[2022-09-21 17:43] LABS: AMPHET/METH SCREEN,URINE NEGATIVE (NEGATIVE); BARBITURATE SCREEN, URINE NEGATIVE (NEGATIVE); BENZODIAZEPINES SCREEN,URINE NEGATIVE (NEGATIVE); CANNABINOID SCREEN,URINE NEGATIVE (NEGATIVE); COCAINE SCREEN,URINE NEGATIVE (NEGATIVE); METHADONE SCREEN, URINE NEGATIVE (NEGATIVE); OPIATE SCREEN,URINE POSITIVE (NEGATIVE); PHENCYCLIDINE SCREEN,URINE NEGATIVE (NEGATIVE)
[2022-09-21 17:47] LABS: ALANINE AMINOTRANSFERASE 20 U/L (12-78); ALBUMIN 3.3 g/dL (3.4-5.0); ALKALINE PHOSPHATASE 57 U/L (46-116); ASPARTATE AMINOTRANSFERASE 18 U/L (15-37); BILIRUBIN,TOTAL 0.2 mg/dL (0.1-1.0); CREATINE KINASE, TOTAL ONLY 53 U/L (26-192); TOTAL PROTEIN, SERUM 7.1 g/dL (6.4-8.2)
[2022-09-21 17:55] LABS: B-TYPE NATRIURETIC PEPTIDE 55 pg/mL (0-100)
[2022-09-21] MEDS ORDERED: DOXY-354 PO (19:52)
[2022-09-21 20:00] VITALS: BP 151/78; PULSE 93; RESP 18; TEMP 98.3
== END 2022-09-21 20:00 | disposition home or self-care (01) ==
LOC: EMS 16:44
DX: S01.81XA Laceration without foreign body of other part of head, initial encounter (principal); R55 Syncope and collapse; F41.9 Anxiety disorder, unspecified; J45.909 Unspecified asthma, uncomplicated; J44.9 Chronic obstructive pulmonary disease, unspecified; I25.10 Atherosclerotic heart disease of native coronary artery without angina pectoris; I11.0 Hypertensive heart disease with heart failure; F17.210 Nicotine dependence, cigarettes, uncomplicated; Z98.890 Other specified postprocedural states; Z88.0 Allergy status to penicillin; Z88.2 Allergy status to sulfonamides; W19.XXXA Unspecified fall, initial encounter; Y93.89 Activity, other specified; Y92.89 Other specified places as the place of occurrence of the external cause; Y99.8 Other external cause status
CPT/HCPCS: 70450; 70486; 71045; 72125; 80053; 80307; 81003; 82550; 83880; 84484; 85025; 85610; 85730; 93005; 99285; 36415-L1; 36415-TC

== ENCOUNTER → 2022-10-26 | Outpatient (CLI) | payer MEDICARE, OTHER ==
[~2022-10-26] MED LIST changes: +DOXY-354 PO
== END | disposition home or self-care (01) ==
LOC: RADMN 09:52
PROVIDERS: ATTEND Internal Medicine Cardiovascular Disease
DX: J44.9 Chronic obstructive pulmonary disease, unspecified (principal); R16.0 Hepatomegaly, not elsewhere classified; K44.9 Diaphragmatic hernia without obstruction or gangrene; M47.814 Spondylosis without myelopathy or radiculopathy, thoracic region; R06.02 Shortness of breath
CPT/HCPCS: 71250

== ENCOUNTER 2022-12-06 09:35 | Emergency (ER) | payer MEDICARE, OTHER ==
[~2022-12-06] VITALS: Ht 167.6 cm; Wt 61.4 kg
[2022-12-06 10:07] VITALS: TEMP 97.7
[2022-12-06] MEDS ORDERED: ACETAMINOPHEN 500 MG TABLET PO ONE (10:15)
[2022-12-06] MEDS ORDERED: ACETAMINOPHEN 325 MG TABLET PO ONE (11:00)
[2022-12-06] MEDS ORDERED: ACETAMINOPHEN 325 MG TABLET ONE (11:38)
[2022-12-06 12:38] VITALS: BP 132/80; PULSE 84; RESP 16
== END 2022-12-06 13:40 | disposition home or self-care (01) ==
LOC: EMS 09:37
DX: S80.02XA Contusion of left knee, initial encounter (principal); S80.01XA Contusion of right knee, initial encounter; F41.9 Anxiety disorder, unspecified; I25.10 Atherosclerotic heart disease of native coronary artery without angina pectoris; I11.0 Hypertensive heart disease with heart failure; J44.9 Chronic obstructive pulmonary disease, unspecified; F17.210 Nicotine dependence, cigarettes, uncomplicated; Z98.890 Other specified postprocedural states; Z88.0 Allergy status to penicillin; Z88.2 Allergy status to sulfonamides; W19.XXXA Unspecified fall, initial encounter; Y93.89 Activity, other specified; Y92.89 Other specified places as the place of occurrence of the external cause; Y99.8 Other external cause status
CPT/HCPCS: 99283

== ENCOUNTER 2023-03-20 23:57 | Inpatient (IN) | payer MEDICARE, OTHER ==
[~2023-03-20] VITALS: Ht 160 cm; Wt 54.5 kg
[2023-03-21] VITALS (8 sets, daily range): BP systolic 107–147; BP diastolic 53–94; PULSE 79–98; RESP 19–24; TEMP 96.9–98.6; O2SAT 96–100
[2023-03-21] MEDS ORDERED: PredniSONE 20 MG TABLET PO ONE (01:00)
[2023-03-21 01:06] LABS: BASOPHILS % (AUTO) 0.6 % (0.0-2.0); HEMATOCRIT 38.7 % (36-46); LYMPHOCYTES # (AUTO) 1.3 K/uL (1.0-4.8); LYMPHOCYTES % (AUTO) 21.2 % (22.0-44.0); MEAN CORPUSCULAR HGB CONC 33.6 G/dL (31.0-37.0); MEAN CORPUSCULAR VOLUME 101 fL (80-100); MONOCYTES # (AUTO) 0.8 K/uL (0.1-1.0); MONOCYTES % (AUTO) 12.5 % (2.0-9.0); NEUTROPHILS # (AUTO) 3.9 K/uL (1.8-7.7); NEUTROPHILS % (AUTO) 63.7 % (40.0-70.0); PLATELET COUNT (AUTO) 114 K/uL (150-450); RED BLOOD CELL COUNT(AUTO) 3.82 MIL/uL (4.00-5.20); RED CELL DISTRIBUTION WIDTH 12.4 % (11.5-14.5); WHITE BLOOD COUNT (AUTO) 6.1 K/uL (4.5-11.0)
[2023-03-21 01:14] LABS: ANION GAP 11 mmol/L (8-16); CALCIUM, TOTAL 9.1 mg/dL (8.8-10.5); CARBON DIOXIDE 27 mmol/L (22-29); CHLORIDE 98 mmol/L (98-107); CREATININE 0.61 mg/dL (0.60-1.30); GLOMERULAR FILTR. RATE CALC > 60 mL/min (>60); GLUCOSE,RANDOM 78 mg/dL (70-110); POTASSIUM 4.6 mmol/L (3.5-5.1); SODIUM SERUM 136 mmol/L (136-145); UREA NITROGEN, BLOOD 7 mg/dL (7-18)
[2023-03-21] MEDS ORDERED: ACETAMINOPHEN 325 MG TABLET PO ONE (01:15)
[2023-03-21 01:20] LABS: ALANINE AMINOTRANSFERASE 59 U/L (12-78); ALBUMIN 3.2 g/dL (3.4-5.0); ALKALINE PHOSPHATASE 86 U/L (46-116); ASPARTATE AMINOTRANSFERASE 112 U/L (15-37); BILIRUBIN,TOTAL 0.6 mg/dL (0.1-1.0); TOTAL PROTEIN, SERUM 7.3 g/dL (6.4-8.2)
[2023-03-21 01:22] LABS: TROPONIN I-HIGH SENSITIVITY 11 ng/L (<51)
[2023-03-21 01:28] LABS: B-TYPE NATRIURETIC PEPTIDE 41 pg/mL (0-100)
[2023-03-21 05:24] LABS: COVID AG,FIA SOURCE NASAL SWAB
[2023-03-21 05:53] LABS: SARS-COV2 (COVID) ANTIGEN,FIA Negative (Negative)
[2023-03-21] MEDS ORDERED: PNEUMOCOCCAL VACCINE POLYVALENT 0.5 ML SYRINGE [PPSV23] IM. ONE (07:15)
[2023-03-21] MEDS ORDERED: INFLUENZA VIRUS VACCINE QVS 2023-24 (6MO+)/PF 60 MCG/0.5 ML SYRINGE IM. ONE (07:15)
[2023-03-21] MEDS ORDERED: ALBUTEROL SULFATE 2.5 MG/0.5 ML NEB SOLUTION NEB PRN ×2 (07:45→12:45)
[2023-03-21] MEDS: ATORVASTATIN CALCIUM 20 MG TABLET PO SCH (08:59)
[2023-03-21] MEDS: SPIRONOLACTONE 25 MG TABLET PO SCH (08:59)
[2023-03-21] MEDS: FAMOTIDINE 20 MG TABLET PO SCH (08:59)
[2023-03-21] MEDS: ASPIRIN 81 MG CHEWABLE TABLET PO SCH (08:59)
[2023-03-21] MEDS: HEPARIN SODIUM,PORCINE 5,000 UNITS/ML VIAL SQ SCH ×2 (09:00→15:33)
[2023-03-21] MEDS: DOCUSATE SODIUM 100 MG CAPSULE PO SCH ×2 (09:00→21:00)
[2023-03-21] MEDS: ACETAMINOPHEN 325 MG TABLET PO PRN ×2 (09:00→19:00)
[2023-03-21] MEDS: LISINOPRIL 5 MG TABLET PO SCH (09:00)
[2023-03-21] MEDS: FUROSEMIDE 20 MG TABLET PO SCH (09:00)
[2023-03-21] MEDS: NICOTINE 21 MG/24 HOUR PATCH TD SCH (09:05)
[2023-03-21] MEDS: LORazepam 2 MG/ML VIAL IVP PRN ×2 (09:05→19:01)
[2023-03-21] MEDS: METOPROLOL SUCCINATE 25 MG ER TABLET PO SCH (09:05)
[2023-03-21] MEDS ORDERED: IPRATROPIUM BROMIDE 0.5 MG/2.5 ML NEB SOLUTION NEB PRN (12:45)
[2023-03-21] MEDS: AZITHROMYCIN 500 MG/NS 250 ML IV SCH (15:25)
[2023-03-21] MEDS ORDERED: SODIUM CHLORIDE 0.9% 250 ML IV ONE (15:32)
[2023-03-21] MEDS: BENZONATATE 100 MG CAPSULE PO SCH ×2 (15:33→20:55)
[2023-03-21] MEDS: MethylPREDNISolone SOD SUCC 40 MG/ML VIAL IVP SCH (15:34)
[2023-03-21] MEDS: ALBUTEROL SULFATE 2.5 MG/0.5 ML NEB SOLUTION NEB SCH ×2 (15:54→20:00)
[2023-03-21] MEDS: IPRATROPIUM BROMIDE 0.5 MG/2.5 ML NEB SOLUTION NEB SCH ×2 (15:54→20:00)
[2023-03-21] MEDS: GuaiFENesin SR 600 MG ER TABLET PO SCH (20:55)
[2023-03-22] VITALS (10 sets, daily range): BP systolic 115–151; BP diastolic 73–83; PULSE 78–104; RESP 18–24; TEMP 98–98.2; O2SAT 88–99
[2023-03-22] MEDS: MethylPREDNISolone SOD SUCC 40 MG/ML VIAL IVP SCH ×4 (00:14→23:34)
[2023-03-22] MEDS: HEPARIN SODIUM,PORCINE 5,000 UNITS/ML VIAL SQ SCH ×4 (00:14→23:40)
[2023-03-22] MEDS: IPRATROPIUM BROMIDE 0.5 MG/2.5 ML NEB SOLUTION NEB SCH ×4 (02:00→20:15)
[2023-03-22] MEDS: ALBUTEROL SULFATE 2.5 MG/0.5 ML NEB SOLUTION NEB SCH ×4 (02:00→20:15)
[2023-03-22 06:49] LABS: EOSINOPHILS % (AUTO) 0 % (1.0-6.0); HEMATOCRIT 35.6 % (36-46); LYMPHOCYTES # (AUTO) 0.5 K/uL (1.0-4.8); MEAN CORPUSCULAR HEMOGLOBIN 34.4 pg (26.0-34.0); MEAN CORPUSCULAR HGB CONC 33.7 G/dL (31.0-37.0); MEAN CORPUSCULAR VOLUME 102 fL (80-100); MONOCYTES # (AUTO) 0.1 K/uL (0.1-1.0); NEUTROPHILS # (AUTO) 4.2 K/uL (1.8-7.7); PLATELET COUNT (AUTO) 100 K/uL (150-450); RED BLOOD CELL COUNT(AUTO) 3.49 MIL/uL (4.00-5.20); RED CELL DISTRIBUTION WIDTH 12.1 % (11.5-14.5); WHITE BLOOD COUNT (AUTO) 4.8 K/uL (4.5-11.0)
[2023-03-22 06:57] LABS: ANION GAP 7 mmol/L (8-16); CALCIUM, TOTAL 9.3 mg/dL (8.8-10.5); CARBON DIOXIDE 30 mmol/L (22-29); CHLORIDE 100 mmol/L (98-107); CREATININE 0.63 mg/dL (0.60-1.30); GLOMERULAR FILTR. RATE CALC > 60 mL/min (>60); GLUCOSE,RANDOM 144 mg/dL (70-110); POTASSIUM 4.3 mmol/L (3.5-5.1); SODIUM SERUM 137 mmol/L (136-145); UREA NITROGEN, BLOOD 10 mg/dL (7-18)
[2023-03-22] MEDS: NICOTINE 21 MG/24 HOUR PATCH TD SCH (08:17)
[2023-03-22] MEDS: GuaiFENesin SR 600 MG ER TABLET PO SCH ×2 (08:18→20:02)
[2023-03-22] MEDS: BENZONATATE 100 MG CAPSULE PO SCH ×3 (08:18→20:02)
[2023-03-22] MEDS: METOPROLOL SUCCINATE 25 MG ER TABLET PO SCH (08:19)
[2023-03-22] MEDS: ATORVASTATIN CALCIUM 20 MG TABLET PO SCH (08:19)
[2023-03-22] MEDS: DOCUSATE SODIUM 100 MG CAPSULE PO SCH ×2 (08:19→20:02)
[2023-03-22] MEDS: LISINOPRIL 5 MG TABLET PO SCH (08:19)
[2023-03-22] MEDS: FAMOTIDINE 20 MG TABLET PO SCH (08:19)
[2023-03-22] MEDS: ASPIRIN 81 MG CHEWABLE TABLET PO SCH (08:19)
[2023-03-22] MEDS: SPIRONOLACTONE 25 MG TABLET PO SCH (08:19)
[2023-03-22] MEDS: FUROSEMIDE 20 MG TABLET PO SCH (08:19)
[2023-03-22] MEDS: ACETAMINOPHEN 325 MG TABLET PO PRN (08:21)
[2023-03-22 08:35] LABS: RBC MORPHOLOGY COMMENT ABNORMAL RBC MORPH
[2023-03-22] MEDS ORDERED: PredniSONE 10 MG TABLET PO SCH (09:00)
[2023-03-22] MEDS: AZITHROMYCIN 500 MG/NS 250 ML IV SCH (13:16)
[2023-03-22 17:04] LABS: APPEARANCE,URINE CLEAR (CLEAR); BILIRUBIN,URINE NEGATIVE (NEGATIVE); COLOR,URINE LIGHT YELLOW (YELLOW); GLUCOSE, URINE (UA) 150-200 mg/dL (NEGATIVE); KETONES,URINE NEGATIVE (NEGATIVE); LEUKOCYTE ESTERASE ,URINE NEGATIVE (NEGATIVE); NITRATE,URINE NEGATIVE (NEGATIVE); OCCULT BLOOD,URINE NEGATIVE (NEGATIVE); PROTEIN,URINE NEGATIVE (NEGATIVE); UROBILINOGEN,URINE <=1.0 mg/dL (<=1.0)
[2023-03-22 17:10] LABS: ALCOHOL, URINE DRUG SCREEN NEGATIVE (NEGATIVE); AMPHET/METH SCREEN,URINE NEGATIVE (NEGATIVE); BARBITURATE SCREEN, URINE NEGATIVE (NEGATIVE); BENZODIAZEPINES SCREEN,URINE NEGATIVE (NEGATIVE); CANNABINOID SCREEN,URINE NEGATIVE (NEGATIVE); COCAINE SCREEN,URINE NEGATIVE (NEGATIVE); METHADONE SCREEN, URINE NEGATIVE (NEGATIVE); OPIATE SCREEN,URINE POSITIVE (NEGATIVE); PHENCYCLIDINE SCREEN,URINE NEGATIVE (NEGATIVE)
[2023-03-22 17:16] LABS: RBC,URINE 0-2 /HPF (0-2); WBC,URINE 0-2 /HPF (0-5)
[2023-03-22 17:17] LABS: BACTERIA,URINE Few /HPF (None Seen); SQUAMOUS EPITHELIAL CELL,UR Moderate /LPF (None Seen); YEAST,URINE Few /HPF (None Seen)
[2023-03-22] MEDS: LORazepam 2 MG/ML VIAL IVP PRN (20:01)
[2023-03-23] MEDS: IPRATROPIUM BROMIDE 0.5 MG/2.5 ML NEB SOLUTION NEB SCH ×3 (02:00→14:17)
[2023-03-23] MEDS: ALBUTEROL SULFATE 2.5 MG/0.5 ML NEB SOLUTION NEB SCH ×3 (02:00→14:17)
[2023-03-23] MEDS: ACETAMINOPHEN 325 MG TABLET PO PRN ×2 (02:35→08:47)
[2023-03-23] MEDS: LORazepam 2 MG/ML VIAL IVP PRN (02:39)
[2023-03-23 04:23] VITALS: BP 135/106; PULSE 105; RESP 18; TEMP 98.3
[2023-03-23 06:53] LABS: EOSINOPHILS % (AUTO) 0 % (1.0-6.0); HEMATOCRIT 35.9 % (36-46); HEMOGLOBIN 12.2 g/dL (12.0-16.0); LYMPHOCYTES # (AUTO) 0.5 K/uL (1.0-4.8); LYMPHOCYTES % (AUTO) 6.8 % (22.0-44.0); MEAN CORPUSCULAR HEMOGLOBIN 34.6 pg (26.0-34.0); MEAN CORPUSCULAR VOLUME 102 fL (80-100); MONOCYTES # (AUTO) 0.3 K/uL (0.1-1.0); MONOCYTES % (AUTO) 3.8 % (2.0-9.0); NEUTROPHILS # (AUTO) 6.1 K/uL (1.8-7.7); PLATELET COUNT (AUTO) 99 K/uL (150-450); RED BLOOD CELL COUNT(AUTO) 3.54 MIL/uL (4.00-5.20); RED CELL DISTRIBUTION WIDTH 12.4 % (11.5-14.5); WHITE BLOOD COUNT (AUTO) 6.8 K/uL (4.5-11.0)
[2023-03-23 07:04] LABS: ANION GAP 4 mmol/L (8-16); CALCIUM, TOTAL 9.2 mg/dL (8.8-10.5); CARBON DIOXIDE 31 mmol/L (22-29); CHLORIDE 100 mmol/L (98-107); CREATININE 0.73 mg/dL (0.60-1.30); GLOMERULAR FILTR. RATE CALC > 60 mL/min (>60); GLUCOSE,RANDOM 170 mg/dL (70-110); POTASSIUM 3.7 mmol/L (3.5-5.1); SODIUM SERUM 135 mmol/L (136-145); UREA NITROGEN, BLOOD 15 mg/dL (7-18)
[2023-03-23 07:12] VITALS: PULSE 92; RESP 22; O2SAT 94
[2023-03-23 07:22] VITALS: PULSE 92; RESP 20; O2SAT 99
[2023-03-23 07:27] LABS: NEUTROPHILS % (AUTO) 89.4 % (40.0-70.0); RBC MORPHOLOGY COMMENT ABNORMAL RBC MORPH
[2023-03-23 08:20] VITALS: BP 145/86; PULSE 92; RESP 20; TEMP 97.8
[2023-03-23] MEDS: MethylPREDNISolone SOD SUCC 40 MG/ML VIAL IVP SCH (08:38)
[2023-03-23] MEDS: HEPARIN SODIUM,PORCINE 5,000 UNITS/ML VIAL SQ SCH (08:38)
[2023-03-23] MEDS: BENZONATATE 100 MG CAPSULE PO SCH (08:39)
[2023-03-23] MEDS: ATORVASTATIN CALCIUM 20 MG TABLET PO SCH (08:39)
[2023-03-23] MEDS: ASPIRIN 81 MG CHEWABLE TABLET PO SCH (08:39)
[2023-03-23] MEDS: SPIRONOLACTONE 25 MG TABLET PO SCH (08:39)
[2023-03-23] MEDS: FUROSEMIDE 20 MG TABLET PO SCH (08:39)
[2023-03-23] MEDS: LISINOPRIL 5 MG TABLET PO SCH (08:39)
[2023-03-23] MEDS: FAMOTIDINE 20 MG TABLET PO SCH (08:40)
[2023-03-23] MEDS: METOPROLOL SUCCINATE 25 MG ER TABLET PO SCH (08:40)
[2023-03-23] MEDS: DOCUSATE SODIUM 100 MG CAPSULE PO SCH (08:40)
[2023-03-23] MEDS: GuaiFENesin SR 600 MG ER TABLET PO SCH (08:41)
[2023-03-23] MEDS: NICOTINE 21 MG/24 HOUR PATCH TD SCH (08:41)
[2023-03-23] MEDS ORDERED: METO25XL PO (10:40)
[2023-03-23] MEDS ORDERED: LISI-892 PO (10:40)
[2023-03-23] MEDS ORDERED: PRED-554 PO (10:40)
[2023-03-23] MEDS ORDERED: IPRA4AER IH (10:40)
[2023-03-23] MEDS ORDERED: CODE10LI PO (10:40)
[2023-03-23] MEDS ORDERED: ATOR20TA65 PO (10:40)
[2023-03-23] MEDS ORDERED: FLUT1BLS15 IH (10:40)
[2023-03-23] MEDS ORDERED: SPIR-37 PO (10:40)
[2023-03-23] MEDS ORDERED: FURO20 PO (10:40)
[2023-03-23] MEDS ORDERED: BENZ100C68 PO (10:40)
[2023-03-23] MEDS ORDERED: HYDR-4527 PO (10:46)
[2023-03-23] MEDS: AZITHROMYCIN 500 MG/NS 250 ML IV SCH (11:05)
[2023-03-23 14:17] VITALS: PULSE 94; RESP 20; O2SAT 95
[2023-03-23 14:29] VITALS: PULSE 96; RESP 20; O2SAT 98
[2023-03-27] MEDS ORDERED: GABA-1181 PO (16:02)
== END 2023-03-23 16:16 | disposition home or self-care (01) | DRG 140 ==
LOC: EMS 23:58 → 5S 03-21 05:18 → 6S 03-22 13:37
PROVIDERS: ADMIT Internal Medicine; ATTEND Internal Medicine
DX: J44.1 Chronic obstructive pulmonary disease with (acute) exacerbation (principal); J96.01 Acute respiratory failure with hypoxia; I50.22 Chronic systolic (congestive) heart failure; I11.0 Hypertensive heart disease with heart failure; Z91.199 Patient's noncompliance with other medical treatment and regimen due to unspecified reason; Z20.822 Contact with and (suspected) exposure to COVID-19; I42.9 Cardiomyopathy, unspecified; I25.10 Atherosclerotic heart disease of native coronary artery without angina pectoris; F41.9 Anxiety disorder, unspecified; F11.20 Opioid dependence, uncomplicated; I25.2 Old myocardial infarction; Z88.0 Allergy status to penicillin; Z88.2 Allergy status to sulfonamides; Z95.810 Presence of automatic (implantable) cardiac defibrillator; Z87.891 Personal history of nicotine dependence; Z79.82 Long term (current) use of aspirin; Z79.899 Other long term (current) drug therapy; Z82.49 Family history of ischemic heart disease and other diseases of the circulatory system; Z83.3 Family history of diabetes mellitus
CPT/HCPCS: 71045; 80048; 80053; 80307; 81001; 83880; 84484; 85025; 87040; 93005; 93306; 94640; 99285; G0378; J0456; J1644; J2060; J2920; J7050; 36415-L1; 36415-TC; J7613

== ENCOUNTER 2023-06-15 19:18 | Inpatient (IN) | payer MEDICARE, OTHER ==
[~2023-06-15] VITALS: Ht 162.6 cm; Wt 63.0 kg
[~2023-06-15 19:18] MED LIST changes: +ATOR20TA65 PO; +AZIT500T4 PO; +BENZ100C68 PO; +BUSP5TAB20 PO; +CARV12 PO; -DOXY-354 PO; +FAMO-136 PO; +GABA-1181 PO; -GABA-531 PO; -HYDR50TA36 PO; -METO-558 PO; +MONT-35 PO; +PRED-729 PO; +TIOT185 IH
[2023-06-15] MEDS ORDERED: FLUT100B IH (19:48)
[2023-06-15] MEDS ORDERED: METO-325 PO (19:48)
[2023-06-15] MEDS ORDERED: AMLO-258 PO (19:48)
[2023-06-15] MEDS ORDERED: SPIR-37 PO (19:48)
[2023-06-15] MEDS ORDERED: MONT-35 PO (19:48)
[2023-06-15] MEDS ORDERED: ALBU18HF12 IH (19:48)
[2023-06-15 20:02] LABS: BASOPHILS % (AUTO) 0.5 % (0.0-2.0); HEMATOCRIT 39.8 % (36-46); HEMOGLOBIN 13.4 g/dL (12.0-16.0); LYMPHOCYTES # (AUTO) 3.3 K/uL (1.0-4.8); LYMPHOCYTES % (AUTO) 47.3 % (22.0-44.0); MEAN CORPUSCULAR HEMOGLOBIN 34.7 pg (26.0-34.0); MEAN CORPUSCULAR HGB CONC 33.7 G/dL (31.0-37.0); MEAN CORPUSCULAR VOLUME 103 fL (80-100); MONOCYTES # (AUTO) 0.8 K/uL (0.1-1.0); NEUTROPHILS # (AUTO) 2.8 K/uL (1.8-7.7); NEUTROPHILS % (AUTO) 40.2 % (40.0-70.0); RED BLOOD CELL COUNT(AUTO) 3.86 MIL/uL (4.00-5.20); WHITE BLOOD COUNT (AUTO) 6.9 K/uL (4.5-11.0)
[2023-06-15 20:19] LABS: TROPONIN I-HIGH SENSITIVITY 10 ng/L (<51)
[2023-06-15 20:21] LABS: ANION GAP 15 mmol/L (8-16); CALCIUM, TOTAL 8.4 mg/dL (8.8-10.5); CARBON DIOXIDE 24 mmol/L (22-29); CHLORIDE 95 mmol/L (98-107); CREATININE 0.75 mg/dL (0.60-1.30); GLOMERULAR FILTR. RATE CALC > 60 mL/min (>60); GLUCOSE,RANDOM 91 mg/dL (70-110); POTASSIUM 3.3 mmol/L (3.5-5.1); SODIUM SERUM 134 mmol/L (136-145); UREA NITROGEN, BLOOD 5 mg/dL (7-18)
[2023-06-15 20:26] LABS: ALANINE AMINOTRANSFERASE 29 U/L (12-78); ALKALINE PHOSPHATASE 89 U/L (46-116); ASPARTATE AMINOTRANSFERASE 75 U/L (15-37); BILIRUBIN,TOTAL 0.5 mg/dL (0.1-1.0); TOTAL PROTEIN, SERUM 7.4 g/dL (6.4-8.2)
[2023-06-15 20:39] LABS: B-TYPE NATRIURETIC PEPTIDE 103 pg/mL (0-100)
[2023-06-15] MEDS: ALBUTEROL SULFATE 2.5 MG/0.5 ML NEB SOLUTION NEB ONE (21:02)
[2023-06-15] MEDS: IPRATROPIUM BROMIDE 0.5 MG/2.5 ML NEB SOLUTION NEB ONE (21:02)
[2023-06-15 21:06] VITALS: PULSE 95; RESP 18; O2SAT 94
[2023-06-15 21:08] VITALS: PULSE 97; RESP 18; O2SAT 94
[2023-06-15 21:13] LABS: COVID AG,FIA SOURCE NASAL SWAB
[2023-06-15 21:14] LABS: PLATELET COUNT (AUTO) 123 K/uL (150-450); RBC MORPHOLOGY COMMENT ABNORMAL RBC MORPH
[2023-06-15 21:55] LABS: INFLUENZA TYPE A NEGATIVE FOR TYPE A (NEGATIVE); INFLUENZA TYPE B NEGATIVE FOR TYPE B (NEGATIVE); SARS-COV2 (COVID) ANTIGEN,FIA Negative (Negative)
[2023-06-15] MEDS ORDERED: ONDANSETRON HCL 4 MG/2 ML VIAL IVP PRN (23:00)
[2023-06-15] MEDS: LORazepam 2 MG/ML VIAL IVP ONE (23:00)
[2023-06-15] MEDS: MethylPREDNISolone SOD SUCC 125 MG/2 ML VIAL IVP ONE (23:00)
[2023-06-15] MEDS ORDERED: 0.9% SODIUM CHLORIDE 10 ML SYRINGE IVP PRN (23:00)
[2023-06-15] MEDS: AZITHROMYCIN 500 MG/NS 250 ML IV SCH (23:30)
[2023-06-16] VITALS (10 sets, daily range): BP systolic 120–153; BP diastolic 73–86; PULSE 85–104; RESP 17–22; TEMP 97.8–98.6; O2SAT 94–98
[2023-06-16] MEDS: IPRATROPIUM BROMIDE 0.5 MG/2.5 ML NEB SOLUTION NEB SCH ×2 (02:00→02:38)
[2023-06-16] MEDS: ALBUTEROL SULFATE 2.5 MG/0.5 ML NEB SOLUTION NEB SCH ×2 (02:00→02:39)
[2023-06-16] MEDS: POTASSIUM CHLORIDE 20 MEQ ER TABLET PO ONE (02:46)
[2023-06-16] MEDS: MethylPREDNISolone SOD SUCC 125 MG/2 ML VIAL IVP SCH (02:46)
[2023-06-16 05:32] LABS: BASOPHILS % (AUTO) 0.3 % (0.0-2.0); EOSINOPHILS % (AUTO) 0 % (1.0-6.0); HEMATOCRIT 44.1 % (36-46); HEMOGLOBIN 14.7 g/dL (12.0-16.0); LYMPHOCYTES # (AUTO) 1.5 K/uL (1.0-4.8); LYMPHOCYTES % (AUTO) 25.8 % (22.0-44.0); MEAN CORPUSCULAR HEMOGLOBIN 34.5 pg (26.0-34.0); MEAN CORPUSCULAR HGB CONC 33.2 G/dL (31.0-37.0); MEAN CORPUSCULAR VOLUME 104 fL (80-100); MONOCYTES # (AUTO) 0.1 K/uL (0.1-1.0); MONOCYTES % (AUTO) 2.5 % (2.0-9.0); NEUTROPHILS # (AUTO) 4.2 K/uL (1.8-7.7); NEUTROPHILS % (AUTO) 71.4 % (40.0-70.0); PLATELET COUNT (AUTO) 129 K/uL (150-450); RED BLOOD CELL COUNT(AUTO) 4.24 MIL/uL (4.00-5.20); RED CELL DISTRIBUTION WIDTH 15.9 % (11.5-14.5); WHITE BLOOD COUNT (AUTO) 5.9 K/uL (4.5-11.0)
[2023-06-16 06:13] LABS: ANION GAP 11 mmol/L (8-16); CALCIUM, TOTAL 8.6 mg/dL (8.8-10.5); CARBON DIOXIDE 26 mmol/L (22-29); CHLORIDE 99 mmol/L (98-107); CREATININE 0.82 mg/dL (0.60-1.30); GLOMERULAR FILTR. RATE CALC > 60 mL/min (>60); GLUCOSE,RANDOM 171 mg/dL (70-110); POTASSIUM 4.2 mmol/L (3.5-5.1); SODIUM SERUM 136 mmol/L (136-145); UREA NITROGEN, BLOOD 6 mg/dL (7-18)
[2023-06-16] MEDS: ACETAMINOPHEN 325 MG TABLET PO PRN (06:37)
[2023-06-16 06:39] LABS: RBC MORPHOLOGY COMMENT ABNORMAL RBC MORPH
[2023-06-16] MEDS ORDERED: FLUT1BLS3 IH (07:46)
[2023-06-16] MEDS ORDERED: BENZONATATE 100 MG CAPSULE PO SCH (09:00)
[2023-06-16] MEDS ORDERED: CARVEDILOL 12.5 MG TABLET PO SCH (09:00)
[2023-06-16] MEDS: ATORVASTATIN CALCIUM 20 MG TABLET PO SCH (09:41)
[2023-06-16] MEDS: ASPIRIN 81 MG DR TABLET PO SCH (09:41)
[2023-06-16] MEDS: GuaiFENesin SR 600 MG ER TABLET PO SCH (09:41)
[2023-06-16] MEDS: MONTELUKAST SODIUM 10 MG TABLET PO SCH (09:42)
[2023-06-16] MEDS: BENZONATATE 100 MG CAPSULE PO PRN (09:42)
[2023-06-16] MEDS: AmLODIPine BESYLATE 5 MG TABLET PO SCH (09:42)
[2023-06-16] MEDS: CARVEDILOL 12.5 MG TABLET PO SCH (09:42)
[2023-06-16] MEDS: CHOLECALCIFEROL (VIT D3) 1,000 UNITS [25 MCG] TABLET PO SCH (09:42)
[2023-06-16] MEDS: HYDROCODONE/ACETAMINOPHEN 5-325 MG TABLET PO PRN (12:13)
[2023-06-16] MEDS: SPIRONOLACTONE 25 MG TABLET PO SCH (12:13)
[2023-06-16] MEDS: BUDESONIDE 0.5 MG/2 ML NEB SOLUTION NEB SCH (12:20)
[2023-06-16] MEDS: LORazepam 0.5 MG TABLET PO PRN (12:20)
[2023-06-16] MEDS: ALBUTEROL SULFATE 2.5 MG/0.5 ML NEB SOLUTION NEB PRN (16:57)
[2023-06-16] MEDS: IPRATROPIUM BROMIDE 0.5 MG/2.5 ML NEB SOLUTION NEB PRN (16:57)
[2023-06-16] MEDS ORDERED: SODIUM CHLORIDE 0.9% 250 ML IV ONE (23:46)
[2023-06-17] VITALS (12 sets, daily range): BP systolic 133–157; BP diastolic 84–94; PULSE 69–107; RESP 16–20; TEMP 97.9–98.2; O2SAT 95–98
[2023-06-17 07:48] LABS: BASOPHILS % (AUTO) 0.1 % (0.0-2.0); EOSINOPHILS % (AUTO) 0 % (1.0-6.0); HEMATOCRIT 36.3 % (36-46); LYMPHOCYTES # (AUTO) 0.6 K/uL (1.0-4.8); LYMPHOCYTES % (AUTO) 7.2 % (22.0-44.0); MEAN CORPUSCULAR HEMOGLOBIN 34.1 pg (26.0-34.0); MEAN CORPUSCULAR VOLUME 103 fL (80-100); MONOCYTES # (AUTO) 0.2 K/uL (0.1-1.0); MONOCYTES % (AUTO) 2.5 % (2.0-9.0); NEUTROPHILS # (AUTO) 7.5 K/uL (1.8-7.7); PLATELET COUNT (AUTO) 91 K/uL (150-450); RED BLOOD CELL COUNT(AUTO) 3.52 MIL/uL (4.00-5.20); RED CELL DISTRIBUTION WIDTH 15.9 % (11.5-14.5); WHITE BLOOD COUNT (AUTO) 8.3 K/uL (4.5-11.0)
[2023-06-17 07:57] LABS: ANION GAP 9 mmol/L (8-16); CALCIUM, TOTAL 8.5 mg/dL (8.8-10.5); CARBON DIOXIDE 27 mmol/L (22-29); CHLORIDE 100 mmol/L (98-107); CREATININE 0.62 mg/dL (0.60-1.30); GLOMERULAR FILTR. RATE CALC > 60 mL/min (>60); GLUCOSE,RANDOM 193 mg/dL (70-110); POTASSIUM 3.5 mmol/L (3.5-5.1); SODIUM SERUM 136 mmol/L (136-145); UREA NITROGEN, BLOOD 14 mg/dL (7-18)
[2023-06-17 08:52] LABS: NEUTROPHILS % (AUTO) 90.2 % (40.0-70.0)
[2023-06-17] MEDS: MethylPREDNISolone SOD SUCC 125 MG/2 ML VIAL IVP SCH (15:44)
[2023-06-18] VITALS (16 sets, daily range): BP systolic 121–149; BP diastolic 73–96; PULSE 71–100; RESP 18–22; TEMP 97.4–98.5; O2SAT 97–100
[2023-06-18 07:35] LABS: EOSINOPHILS % (AUTO) 0 % (1.0-6.0); HEMATOCRIT 36.1 % (36-46); HEMOGLOBIN 11.9 g/dL (12.0-16.0); LYMPHOCYTES # (AUTO) 0.4 K/uL (1.0-4.8); LYMPHOCYTES % (AUTO) 3.8 % (22.0-44.0); MEAN CORPUSCULAR HEMOGLOBIN 34.4 pg (26.0-34.0); MEAN CORPUSCULAR VOLUME 104 fL (80-100); MONOCYTES # (AUTO) 0.3 K/uL (0.1-1.0); MONOCYTES % (AUTO) 2.3 % (2.0-9.0); NEUTROPHILS # (AUTO) 10.7 K/uL (1.8-7.7); PLATELET COUNT (AUTO) 84 K/uL (150-450); RED BLOOD CELL COUNT(AUTO) 3.47 MIL/uL (4.00-5.20); RED CELL DISTRIBUTION WIDTH 15.6 % (11.5-14.5); WHITE BLOOD COUNT (AUTO) 11.4 K/uL (4.5-11.0)
[2023-06-18 07:41] LABS: ANION GAP 11 mmol/L (8-16); CALCIUM, TOTAL 8.6 mg/dL (8.8-10.5); CARBON DIOXIDE 29 mmol/L (22-29); CHLORIDE 101 mmol/L (98-107); CREATININE 0.57 mg/dL (0.60-1.30); GLOMERULAR FILTR. RATE CALC > 60 mL/min (>60); GLUCOSE,RANDOM 142 mg/dL (70-110); POTASSIUM 3.4 mmol/L (3.5-5.1); SODIUM SERUM 141 mmol/L (136-145); UREA NITROGEN, BLOOD 16 mg/dL (7-18)
[2023-06-18 07:56] LABS: NEUTROPHILS % (AUTO) 93.9 % (40.0-70.0)
[2023-06-18 09:43] LABS: APPEARANCE,URINE CLEAR (CLEAR); BILIRUBIN,URINE NEGATIVE (NEGATIVE); COLOR,URINE COLORLESS (YELLOW); GLUCOSE, URINE (UA) 150-200 mg/dL (NEGATIVE); KETONES,URINE NEGATIVE (NEGATIVE); LEUKOCYTE ESTERASE ,URINE NEGATIVE (NEGATIVE); NITRATE,URINE NEGATIVE (NEGATIVE); OCCULT BLOOD,URINE NEGATIVE (NEGATIVE); PH,URINE 6.5 (5.0-8.0); PROTEIN,URINE NEGATIVE (NEGATIVE); SPECIFIC GRAVITIY, URINE 1.014 (1.003-1.030); UROBILINOGEN,URINE <=1.0 mg/dL (<=1.0)
[2023-06-18 10:42] LABS: BACTERIA,URINE None Seen /HPF (None Seen); RBC,URINE None Seen /HPF (0-2); SQUAMOUS EPITHELIAL CELL,UR Few /LPF (None Seen); WBC,URINE None Seen /HPF (0-5)
[2023-06-18] MEDS: PredniSONE 20 MG TABLET PO SCH (11:35)
[2023-06-18] MEDS ORDERED: POTASSIUM CHL 10 MEQ/WATER 50 ML IV PRN (21:00)
[2023-06-18] MEDS: POTASSIUM CHLORIDE 20 MEQ ER TABLET PO PRN (21:35)
[2023-06-19] VITALS (10 sets, daily range): BP systolic 115–165; BP diastolic 67–102; PULSE 70–93; RESP 18–22; TEMP 97.6–98; O2SAT 92–99
== END 2023-06-19 20:45 | disposition home health service (06) | DRG 140 ==
LOC: EMS 19:30 → 5N 06-16 02:34
PROVIDERS: ADMIT Internal Medicine; ATTEND Internal Medicine
DX: J44.1 Chronic obstructive pulmonary disease with (acute) exacerbation (principal); J96.21 Acute and chronic respiratory failure with hypoxia; I50.42 Chronic combined systolic (congestive) and diastolic (congestive) heart failure; I11.0 Hypertensive heart disease with heart failure; Z20.822 Contact with and (suspected) exposure to COVID-19; K21.9 Gastro-esophageal reflux disease without esophagitis; E78.00 Pure hypercholesterolemia, unspecified; I25.10 Atherosclerotic heart disease of native coronary artery without angina pectoris; F32.A Depression, unspecified; F17.210 Nicotine dependence, cigarettes, uncomplicated; F41.1 Generalized anxiety disorder; K57.90 Diverticulosis of intestine, part unspecified, without perforation or abscess without bleeding; Z86.73 Personal history of transient ischemic attack (TIA), and cerebral infarction without residual deficits; Z88.0 Allergy status to penicillin; Z90.49 Acquired absence of other specified parts of digestive tract; Z95.810 Presence of automatic (implantable) cardiac defibrillator; Z88.2 Allergy status to sulfonamides; Z79.899 Other long term (current) drug therapy; I25.2 Old myocardial infarction; Z91.199 Patient's noncompliance with other medical treatment and regimen due to unspecified reason
CPT/HCPCS: 71045; 80048; 80053; 81001; 83880; 84132; 84484; 85025; 87804; 93005; 94060; 94640; 99285; J0456; J2060; J2930; J7050; 36415-L1; 36415-TC; J7613

== ENCOUNTER 2024-03-02 19:54 | Emergency (ER) | payer MEDICARE, OTHER ==
[~2024-03-02] VITALS: Ht 167.6 cm; Wt 45.5 kg
[~2024-03-02 19:54] MED LIST changes: +0.9% SODIUM CHLORIDE 10 ML SYRINGE IVP ONE; +ALBU18HF12 IH; -AMLO-257 PO; +AMLO-258 PO; -AZIT500T4 PO; +FLUT1BLS3 IH; -PRED-554 PO; -PRED-729 PO; +SODIUM BICARBONATE [ADULT] 8.4% 50 MEQ/50 ML SYRINGE IVP ONE; +SPIR-37 PO
[2024-03-02 19:55] VITALS: BP 0/0; PULSE 0; RESP 0; O2SAT 0
[2024-03-02 21:24] LABS: CALCIUM, TOTAL 8.3 mg/dL (8.8-10.5); CREATININE 1.1 mg/dL (0.60-1.30)
[2024-03-02 21:33] LABS: TROPONIN I-HIGH SENSITIVITY 16 ng/L (<51)
== END 2024-03-02 23:00 ==
LOC: EMS 19:54
DX: I46.9 Cardiac arrest, cause unspecified (principal); R06.03 Acute respiratory distress; R53.1 Weakness; J44.89 Other specified chronic obstructive pulmonary disease; Z88.0 Allergy status to penicillin; Z88.2 Allergy status to sulfonamides; Z79.82 Long term (current) use of aspirin; Z87.891 Personal history of nicotine dependence; Z79.899 Other long term (current) drug therapy
CPT/HCPCS: 99291; 92950; 31500; 80048; 84484; 36415; J3490